=== PATIENT | male | born 1950 | race African-American/Black ===

== ENCOUNTER 2023-08-10 15:31 | Inpatient (IN) ==
[2023-08-10 18:49] LABS: BASOPHILS # (AUTO) 0.1 X10^3/uL (0.0-0.1); BASOPHILS % (AUTO) 0.5 % (0.2-1.0); EOSINOPHILS # (AUTO) 0.3 x10^3/uL (0.0-0.2); EOSINOPHILS % (AUTO) 1.3 % (0.9-2.9); HEMATOCRIT 36.9 % (42.0-54.0); HEMOGLOBIN 12.6 g/dL (13.5-18.0); LYMPHOCYTES # (AUTO) 1.2 X10^3/uL (1.3-2.9); MEAN CORPUSCULAR HEMOGLOBIN 30.5 pg (27.0-34.0); MEAN CORPUSCULAR HGB CONC 34.2 g/dL (33.0-35.0); MEAN PLATELET VOLUME 7.4 fL (7.4-11.0); MONOCYTES # (AUTO) 1.3 x10^3/uL (0.3-0.8); MONOCYTES % (AUTO) 6.5 % (0.0-13.0); NEUTROPHILS # (AUTO) 16.6 x10^3/uL (2.2-4.8); NEUTROPHILS % (AUTO) 85.7 % (42.0-75.0); PLATELET COUNT 295 X10^3/uL (150.0-450.0); RED BLOOD COUNT 4.15 X10^6/uL (4.7-6.0); RED CELL DISTRIBUTION WIDTH 13.2 % (11.6-16.5); WHITE BLOOD COUNT 19.3 X10^3/uL (3.6-10.0)
[2023-08-10 19:09] LABS: ALBUMIN 2.7 g/dL (3.4-5.0); CALCIUM 9.1 mg/dL (8.5-10.1); CARBON DIOXIDE 24.1 mmol/L (21-32); COR CA(FOR HYPOALB) 10.1 mg/dL (8.5-10.1); CREATININE 1.74 mg/dL (0.70-1.30); POTASSIUM 4.1 mmol/L (3.5-5.1); TOTAL PROTEIN 8.1 g/dL (6.4-8.2)
[2023-08-10 19:59] VITALS: BMI 25.6
[2023-08-10] MEDS: LR 1,000 ML IV 1,000 ML IV SCH (20:05)
[2023-08-10] MEDS: ZOSYN VIAL 3.375 GRAMS 3.375 G in NS 100 ML IV 100 ML IV SCH (20:05)
[2023-08-10] MEDS: NS 250 ML IV 25 ML IV PRN (20:05)
[2023-08-10] MEDS: DILAUDID INJ IVP PRN (20:14)
[2023-08-10] MEDS: COLCRYS TAB 0.6 MG PO SCH (20:54)
[2023-08-10] MEDS: NAPROSYN PO SCH (20:54)
[2023-08-10] MEDS: LOVENOX INJ 80 MG SYR SC SCH (20:55)
[2023-08-10] MEDS: ROBAXIN PO SCH (20:55)
--- NOTE | 2023-08-10 21:46 | EKG ---
Test Reason : Protocol Blood Pressure : */* mmHG Vent. Rate : 89 BPM Atrial Rate : 89 BPM P-R Int : 178 ms QRS Dur : 86 ms QT Int : 352 ms P-R-T Axes : 49 -15 59 degrees QTc Int : 428 ms Normal sinus rhythm Normal ECG No previous ECGs available Confirmed by Will Calhoun MD ([id number]) on 08/11/2023 7:45:15 AM Referred By: Confirmed By: Will Calhoun MD
[2023-08-11] MEDS: ZOSYN VIAL 3.375 GRAMS 3.375 G in NS 100 ML IV 100 ML IV SCH (05:06)
[2023-08-11] MEDS: ZESTORETIC 20/25 MG PO SCH (09:41)
[2023-08-11] MEDS: PROTONIX TAB 40 MG PO SCH (09:41)
[2023-08-11] MEDS ORDERED: MULTIHANCE INJ VIAL ONE (09:46)
[2023-08-11] MEDS: NYSTATIN POWDER TOP SCH (12:00)
--- NOTE | 2023-08-11 12:19 | RAD ---
EXAM:FOOT, RIGHT three-viewHISTORY:RT GREAT TOE WOUND ;COMPARISON:NoneFINDINGS:No acute fracture or dislocation. Hallux valgus deformity. No acute soft tissue abnormality. The talus and calcaneus appear intact.IMPRESSION:No acute fracture or dislocation.THIS IS AN ELECTRONICALLY VERIFIED FINAL REPORT08/11/2023 12:16 PM - Electronically signed by Ron Wang MD
--- NOTE | 2023-08-11 13:58 | NOTE.SOAP ---
Soap Note Note for Day of Date of Exam: 08/11/23 Subjective Data Subjective Data: Patient stable with no clinical indications of sepsis. Seen by Podiatry. MRI could not be performed as the patient could not tolerate the "cage " Plain films pending. WBC on admission > 19 k. Objective Data Temperature: 97.7 F Pulse Rate: 72 Respiratory Rate: 18 Blood Pressure: 108/59 O2 Sat by Pulse Oximetry: 98 Objective Data: Left foot swollen and unchanged consistent with ischemia . Xray of right foot with no acute changes . Assessment Assessment: Ischemia of left foot with wounds . Plan Plan: Continue IV antibiotics . Plan arterial intervention right leg on Monday.Repeat labs in AM.
--- NOTE | 2023-08-11 14:35 | DR.H&P ---
H&P History & Physical for Day of: H&P Date: 08/10/23 Chief Complaint Chief Complaint: painful wounds, blistering and swelling right foot. 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 Menon , yesterday with several month complaint of rest pain both legs and now with swelling, blisters and drainage left forefoot. Has had recent CTA in [place] showing b/l superficial femoral artery occlusion and reconstitution of the distal superficial femoral arteries with occlusion posterior tibial and anterior tibial arteries both legs with reconstitution both vessels, both legs distally. 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 Past Medical History Past Medical History: Gout and Hypertension Additional Medical History: tobacco abuse Past Surgical History Surgical History: Other (back surgery) Family History Family Medical History: Diabetes Mellitus Social History Does patient currently use any type of tobacco product: Yes Have you used tobacco products in the last 12 months: Yes Type of Tobacco Use: Cigarettes How many years tobacco product used: 12 Does any household member use tobacco: No Alcohol Use: None Drug Use: None Medications Home Medications: lisinopril/ HCTZ 20/25 mg dailly, diclofenac 75 mg po BID methocarbamol 1500 mg TID colcicine 0.6 mg BID Labs 08/10/23 18:35 08/10/23 18:35 Labs: 08/11/23 01:50 Foot - Right Wound Gram Stain - Final Laboratory WBC 19.3 X10^3/uL (3.6-10.0) H 08/10/23 18:35 RBC 4.15 X10^6/uL (4.7-6.0) L 08/10/23 18:35 Hgb 12.6 g/dL (13.5-18.0) L 08/10/23 18:35 Hct 36.9 % (42.0-54.0) L 08/10/23 18:35 MCV 89.0 fL (80.0-100.0) 08/10/23 18:35 MCH 30.5 pg (27.0-34.0) 08/10/23 18:35 MCHC 34.2 g/dL (33.0-35.0) 08/10/23 18:35 RDW 13.2 % (11.6-16.5) 08/10/23 18:35 Plt Count 295 X10^3/uL (150.0-450.0) 08/10/23 18:35 MPV 7.4 fL (7.4-11.0) 08/10/23 18:35 Neut % (Auto) 85.7 % (42.0-75.0) H 08/10/23 18:35 Lymph % (Auto) 6.0 % (21.0-51.0) L 08/10/23 18:35 [place] % (Auto) 6.5 % (0.0-13.0) 08/10/23 18:35 Eos % (Auto) 1.3 % (0.9-2.9) 08/10/23 18:35 Baso % (Auto) 0.5 % (0.2-1.0) 08/10/23 18:35 Neut # (Auto) 16.6 x10^3/uL (2.2-4.8) H 08/10/23 18:35 Lymph # (Auto) 1.2 X10^3/uL (1.3-2.9) L 08/10/23 18:35 [place] # (Auto) 1.3 x10^3/uL (0.3-0.8) H 08/10/23 18:35 Eos # (Auto) 0.3 x10^3/uL (0.0-0.2) H 08/10/23 18:35 Baso # (Auto) 0.1 X10^3/uL (0.0-0.1) 08/10/23 18:35 Absolute Nucleated RBC 0.0 /100WBC 08/10/23 18:35 Sodium 135 mmol/L (136-145) L 08/10/23 18:35 Corrected Sodium 136 mmol/L (136-145) 08/10/23 18:35 Potassium 4.1 mmol/L (3.5-5.1) 08/10/23 18:35 Chloride 100 mmol/L (98-107) 08/10/23 18:35 Carbon Dioxide 24.1 mmol/L (21-32) 08/10/23 18:35 BUN 50 mg/dL (7-18) H 08/10/23 18:35 Creatinine 1.74 mg/dL (0.70-1.30) H 08/10/23 18:35 Est GFR (MDRD) Af Amer 50 (>60) L 08/10/23 18:35 Est GFR (MDRD) Non-Af 41 (>60) L 08/10/23 18:35 Glucose 124 mg/dL (65-99) H 08/10/23 18:35 Calcium 9.1 mg/dL (8.5-10.1) 08/10/23 18:35 Corrected Calcium 10.1 mg/dL (8.5-10.1) 08/10/23 18:35 Total Bilirubin 0.40 mg/dL (0.2-1.0) 08/10/23 18:35 AST 49 Units/L (15-37) H 08/10/23 18:35 ALT 57 Units/L (12-78) 08/10/23 18:35 Alkaline Phosphatase 146 Units/L (46-116) H 08/10/23 18:35 Total Protein 8.1 g/dL (6.4-8.2) 08/10/23 18:35 Albumin 2.7 g/dL (3.4-5.0) L 08/10/23 18:35 Globulin 5.4 g/dL (2.5-4.5) H 08/10/23 18:35 Albumin/Globulin Ratio 0.5 Ratio (1.1-2.1) L 08/10/23 18:35 Review of Systems Constitutional: See HPI Eyes: No Symptoms Reported ENT: No Symptoms Reported Respiratory: No Symptoms Reported Cardiovascular: No Symptoms Reported Gastrointestinal: No Symptoms Reported Genitourinary: No Symptoms Reported Musculoskeletal: See HPI Skin: See HPI Neurological: No Symptoms Reported Physical Exam Vital Signs: Vital Signs Temperature 97.7 F Temperature 97.7 F Temperature 98.1 F Pulse Rate [Left Brachial] 72 Pulse Rate [Left Brachial] 83 Pulse Rate 72 Respiratory Rate 18 Respiratory Rate 18 Respiratory Rate 18 Blood Pressure [Left Arm] 108/59 Blood Pressure [Left Arm] 129/63 Blood Pressure 108/59 O2 Sat by Pulse Oximetry 98 O2 Sat by Pulse Oximetry 98 O2 Sat by Pulse Oximetry 98 Oriented: Normal, Time, Person and Place Eyes: Normal Ear: Normal Nose: Normal Throat: Normal Respiratory: Clear Throughout Cardiovascular: Normal : Normal Palpation: Normal Tenderness: Normal Skin: Other (Clinical evidence of ischemic toes right foot with blistering over the dorsum of the right foot over the fourth and fifth metatarsals. ) Musculoskeletal: Normal Psychiatric: Normal Mood Description: Depressed Affect: Quiet Speech Pattern: Clear Assessment/Plan (1) Atherosclerosis of nikolai arteries of extremities with rest pain, right leg: Status: Acute Plan: Therapuetic SQ Lovenox, plan arterial intervention right foot next Monday. (2) Cellulitis of right foot: Status: Acute Plan: IV antibiotics, will consult Dr. Bhandari (3) Atherosclerosis of nikolai arteries of extremities with rest pain, left leg: Status: Acute Plan: left leg will need arterial intervention in the near future after we resolve the issues withn the right leg. (4) Essential (primary) hypertension: Status: Acute Plan: home medications (5) Tobacco abuse: Status: Acute Plan: Nicotine patch (6) Gout: Status: Acute Plan: home medications
[2023-08-11] MEDS: BETADINE SOLN TOP ONE (18:21)
--- NOTE | 2023-08-11 19:55 | NOTE.SOAP ---
Soap Note Note for Day of Date of Exam: 08/11/23 Subjective Data Subjective Data: 72 year old male consulted for ischemic changes to the right foot. Malodor noted. Patient was resting comfortably in bed but states that it is painful Objective Data Objective Data: Dry gangrenous changes to the medial and lateral aspect of the right foot. No dermatological changes noted to the left. No purulence or crepitus but it is malodorous. Non palpable pulses. Neuro status unchanged Assessment Assessment: 72 year old male with critical limb ischemia and dry gangrene to the RLE Plan Plan: Patient was seen bedside this am with Dr. Bhandari. Diagnosis and treatment were discussed in full detail. XR of right foot reviewed; MRI was ordered but unable to do because of claustrophobia. Pending vascular intervention; recs aprpeciated. On IV antibiotics. Betadine paint to right foot to keep dry. Plan to monitor and see response to vascular intervention and possibly take to the OR early next week
[2023-08-12 05:37] LABS: BLOOD UREA NITROGEN 31 mg/dL (7-18); CALCIUM 9.1 mg/dL (8.5-10.1); CARBON DIOXIDE 24.8 mmol/L (21-32); CHLORIDE 105 mmol/L (98-107); CREATININE 1.48 mg/dL (0.70-1.30); GLUCOSE 81 mg/dL (65-99); SODIUM 141 mmol/L (136-145); eGFR NON BLACK RACES 50 (>60)
[2023-08-12 05:41] LABS: BASOPHILS # (AUTO) 0.1 X10^3/uL (0.0-0.1); BASOPHILS % (AUTO) 0.9 % (0.2-1.0); EOSINOPHILS # (AUTO) 0.4 x10^3/uL (0.0-0.2); EOSINOPHILS % (AUTO) 3.1 % (0.9-2.9); HEMATOCRIT 32.6 % (42.0-54.0); LYMPHOCYTES % (AUTO) 13.8 % (21.0-51.0); MEAN CORPUSCULAR HEMOGLOBIN 30.1 pg (27.0-34.0); MEAN CORPUSCULAR HGB CONC 33.6 g/dL (33.0-35.0); MEAN CORPUSCULAR VOLUME 89.4 fL (80.0-100.0); MEAN PLATELET VOLUME 7.6 fL (7.4-11.0); MONOCYTES # (AUTO) 1.3 x10^3/uL (0.3-0.8); MONOCYTES % (AUTO) 9.2 % (0.0-13.0); NEUTROPHILS # (AUTO) 10.6 x10^3/uL (2.2-4.8); PLATELET COUNT 282 X10^3/uL (150.0-450.0); RED BLOOD COUNT 3.65 X10^6/uL (4.7-6.0); RED CELL DISTRIBUTION WIDTH 13.4 % (11.6-16.5); WHITE BLOOD COUNT 14.4 X10^3/uL (3.6-10.0)
--- NOTE | 2023-08-12 06:08 | RAD ---
EXAM: CHEST, 1 VIEW HISTORY: F/U PNEUMONIA ; HTN, COPD COMPARISON: None available. FINDINGS: The trachea is midline. The cardiac silhouette is unremarkable . The lungs are clear without focal infiltrate or effusion. The bony thorax is unremarkable. IMPRESSION: No acute cardiopulmonary disease. THIS IS AN ELECTRONICALLY VERIFIED FINAL REPORT 08/12/2023 6:04 AM - Electronically signed by Waylon Young MD
--- NOTE | 2023-08-12 06:36 | NOTE.SOAP ---
Soap Note Note for Day of Date of Exam: 08/12/23 Subjective Data Subjective Data: Patient seen this am; expressing some pain in the right foot. Denies any constitutional symptoms at the moment. Objective Data Objective Data: No clinical changes; Dry gangrenous changes to the medial and lateral aspect of the right foot. No dermatological changes noted to the left. No purulence or crepitus but it is malodorous. Non palpable pulses. Neuro status unchanged Assessment Assessment: 72 year old male with critical limb ischemia, leukocytosis and dry gangrene to the RLE Plan Plan: Patient was seen bedside this am. Diagnosis and treatment were discussed in full detail. XR of right foot reviewed no soft tissue emphesema noted or signs of osteomyelitis. Foot is dry and stable right now; continue betadine paint BID. Pending vascular intervention; recs aprpeciated. On IV antibiotics. Plan to monitor and see response to vascular intervention and possibly take to the OR early next week
--- NOTE | 2023-08-12 08:08 | CT ---
EXAM:CT right lower extremity without contrastHISTORY:Evaluate for right foot infection. History of right 1st toe wound.COMPARISON:Right foot series from 08/11/2023.TECHNIQUE:Noncontrast axial, coronal and sagittal CT imaging was performed through the right ankle and foot. Dose reduction techniques including Automated Exposure Control (AEC) and adjustment of mA and kV were utilized.FINDINGS:Bones: No acute fracture or dislocation. No suspicious cortical destruction. Mild osteoarthritis at the 1st MTP joint and at the interphalangeal joint of the 1st toe.Soft tissues: Subcentimeter wound medially along the 1st toe at the level of the 1st MTP joint with associated mild edema. No soft tissue gas or fluid collection.IMPRESSION:Subcentimeter right 1st toe wound with associated mild edema without CT evidence of osteomyelitis.THIS IS AN ELECTRONICALLY VERIFIED FINAL REPORT08/12/2023 8:05 AM - Electronically signed by Henry Phan MD
[2023-08-12] MEDS: NICOTINE PATCH TD SCH (09:11)
[2023-08-13 09:18] LABS: BASOPHILS # (AUTO) 0.1 X10^3/uL (0.0-0.1); BASOPHILS % (AUTO) 0.9 % (0.2-1.0); EOSINOPHILS # (AUTO) 0.3 x10^3/uL (0.0-0.2); EOSINOPHILS % (AUTO) 2.4 % (0.9-2.9); HEMATOCRIT 33.2 % (42.0-54.0); HEMOGLOBIN 11.1 g/dL (13.5-18.0); LYMPHOCYTES # (AUTO) 2.2 X10^3/uL (1.3-2.9); LYMPHOCYTES % (AUTO) 15.1 % (21.0-51.0); MEAN CORPUSCULAR HGB CONC 33.5 g/dL (33.0-35.0); MEAN CORPUSCULAR VOLUME 89.5 fL (80.0-100.0); MEAN PLATELET VOLUME 7.2 fL (7.4-11.0); MONOCYTES # (AUTO) 1.2 x10^3/uL (0.3-0.8); MONOCYTES % (AUTO) 8.6 % (0.0-13.0); NEUTROPHILS # (AUTO) 10.4 x10^3/uL (2.2-4.8); PLATELET COUNT 303 X10^3/uL (150.0-450.0); RED BLOOD COUNT 3.71 X10^6/uL (4.7-6.0); RED CELL DISTRIBUTION WIDTH 13.2 % (11.6-16.5); WHITE BLOOD COUNT 14.2 X10^3/uL (3.6-10.0)
[2023-08-13 09:28] LABS: ALANINE AMINOTRANSFERASE 49 Units/L (12-78); ALBUMIN 2.3 g/dL (3.4-5.0); ALKALINE PHOSPHATASE 135 Units/L (46-116); ASPARTATE AMINO TRANSFERASE 34 Units/L (15-37); BLOOD UREA NITROGEN 21 mg/dL (7-18); CALCIUM 8.8 mg/dL (8.5-10.1); CARBON DIOXIDE 27.2 mmol/L (21-32); CHLORIDE 106 mmol/L (98-107); COR CA(FOR HYPOALB) 10.2 mg/dL (8.5-10.1); COR NA(FOR HYPERGLY) 142 mmol/L (136-145); CREATININE 1.37 mg/dL (0.70-1.30); GLUCOSE 116 mg/dL (65-99); SODIUM 142 mmol/L (136-145); TOTAL PROTEIN 7.1 g/dL (6.4-8.2); eGFR NON BLACK RACES 54 (>60)
--- NOTE | 2023-08-13 20:50 | NOTE.SOAP ---
Soap Note Note for Day of Date of Exam: 08/13/23 Subjective Data Subjective Data: HD # 3 after admission for ischemic right foot with infection. CTA shows complete occlusion of SFA . Objective Data Temperature: 98.7 F Pulse Rate: 69 Respiratory Rate: 18 Blood Pressure: 151/83 O2 Sat by Pulse Oximetry: 97 Objective Data: Betadine drying the wounds of the right foot, less drainage, ischemia stable Assessment Assessment: As above Plan Plan: Continue IV antibiotcs and will examine wound in AM . For arterial internvention on 08/15/2023.
--- NOTE | 2023-08-14 07:11 | NOTE.SOAP ---
Soap Note Note for Day of Date of Exam: 08/14/23 Subjective Data Subjective Data: Patient seen this am; expressing some pain in the right foot. Denies any constitutional symptoms at the moment. Objective Data Objective Data: No clinical changes; Dry gangrenous changes to the medial and lateral aspect of the right foot. No dermatological changes noted to the left. No purulence or crepitus but it is malodorous. Non palpable pulses. Neuro status unchanged Assessment Assessment: 72 year old male with critical limb ischemia, leukocytosis and dry gangrene to the RLE Plan Plan: Patient was seen bedside this am. Diagnosis and treatment were discussed in full detail. XR and CT of right foot reviewed no soft tissue emphesema noted or signs of osteomyelitis. Foot is dry and stable right now; continue betadine paint BID. Pending vascular intervention; recs aprpeciated. On IV antibiotics. Plan to monitor and see response to vascular intervention tomorrow
--- NOTE | 2023-08-14 13:18 | NOTE.SOAP ---
Soap Note Note for Day of Date of Exam: 08/14/23 Subjective Data Subjective Data: Patient admitted for critical ischemia right leg with cellulitis right foot. Doing well. 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 Objective Data Temperature: 97.9 F Pulse Rate: 74 Respiratory Rate: 18 Blood Pressure: 138/71 O2 Sat by Pulse Oximetry: 99 Objective Data: Right foot drying up with betadine treatment. Infection appears to be under control. Assessment Assessment: Ischemia/ cellulitis right foot Plan Plan: For right foot revascualarization tomorrow.
[2023-08-15] MEDS: HIBICLENS WASH EXT ONE (05:34)
[2023-08-15] MEDS: FENTANYL VIAL INJ 100 mcg ONE ×2 (10:13→11:47)
[2023-08-15] MEDS: LR 1,000 ML IV 1,000 ML IV ONE (10:24)
[2023-08-15] MEDS: VERSED ONE (11:04)
[2023-08-15] MEDS ORDERED: KETAMINE HCL ONE (11:04)
[2023-08-15] MEDS ORDERED: ULTANE GAS IN ONE (11:04)
[2023-08-15] MEDS: DIPRIVAN VIAL 20 ML ONE ×2 (11:04→11:32)
[2023-08-15] MEDS ORDERED: XYLOCAINE 2 % (PLAIN) ONE (11:04)
[2023-08-15] MEDS: VISIPAQUE 100 ML ONE (11:23)
[2023-08-15] MEDS: MARCAINE 0.5% ONE (11:23)
[2023-08-15] MEDS: VISIPAQUE 50 ML ONE (11:23)
[2023-08-15] MEDS: HEPARIN SODIUM IN D5W 75,000 UNITS/1,500 ML BAG ONE (11:23)
[2023-08-15] MEDS: HEPARIN SODIUM INJ 5000 UNITS ONE ×2 (11:24→12:27)
[2023-08-15] MEDS: NS 1,000 ML IV 1,000 ML ONE (11:53)
[2023-08-15] MEDS ORDERED: REGLAN INJ 10 MG VIAL IVP PRN (13:39)
[2023-08-15] MEDS ORDERED: BENADRYL INJ 50 MG VIAL IVP PRN (13:39)
[2023-08-15] MEDS ORDERED: DILAUDID INJ IVP PRN (13:39)
[2023-08-15] MEDS ORDERED: BARHEMSYS INJ IVP PRN (13:39)
[2023-08-15] MEDS ORDERED: ZOFRAN INJ 4 MG VIAL IVP PRN (13:39)
--- NOTE | 2023-08-15 14:20 | OR.IMMED ---
IMMEDIATE POST-OP NOTE Immediate Post-Op Note Date of surgery/procedure: 08/15/23 Pre-Op Diagnosis: Critical ischema right leg with tissue loss right foot Post-Op Diagnosis: same Procedure: aortogram, arteriogram right leg, atherectomy and drug coated b alloon angioplasty of the right tibial peroneal trunk, right popliteal artery occlusion and severely diseased right superficial femoral artery , subsequent stenting of the right popiteal artery Surgeon/Rotating Equipment Engineer: Magdy Findings: see operative summary Estimated Blood Loss: 100 cc Complications: none Post Hospital Plans and Medications: patient returned to the floor. will begin diet and PO Xarelto and aspirin
[2023-08-15] MEDS: LEVAQUIN TAB 750 MG PO SCH (14:52)
[2023-08-15] MEDS: XARELTO PO SCH (20:11)
[2023-08-16] MEDS: ASPIRIN EC 81 MG PO SCH (09:28)
--- NOTE | 2023-08-16 17:07 | NOTE.SOAP ---
Soap Note Note for Day of Date of Exam: 08/16/23 Subjective Data Subjective Data: S/P right leg arteriogram with atherectomy and angioplasty right popliteal artery and tibial peroneal trunk , atherectomy and stenting left proximal popliteal artery with atherectomy and drug coated balloon angioplasty right supeficial femoral artery. I am worried about the runoff of the right leg as he essentially only has one vessel runoff of the right foot , i.e. right peroneal which is large but i am concerned about the flow to the left foot. Charisma denies pain right foot now . Objective Data Temperature: 99.1 F Pulse Rate: 89 Respiratory Rate: 17 Blood Pressure: 113/69 O2 Sat by Pulse Oximetry: 96 Objective Data: Right foot warm with doppler signal right posterior tibial artery with dry eschar of the dorsal right foot with swelling. MRI not able to be obtained . C T of right foot shows no abcess of structural problem of the right foot. Assessment Assessment: Critical ischemia right foot with improved after arterial intervention. Plan Plan: Will obsefve wounds of right foot and eschar should peel off and then heal. Will refer back to Dr. Menon. Charisma with known severe ischemia left leg as well. Transportation is an issue for him. Will consider arterial intervention of the left leg prior to his discharge.
[2023-08-17] MEDS: HIBICLENS WASH EXT ONE (05:19)
[2023-08-17 05:35] LABS: BLOOD UREA NITROGEN 19 mg/dL (7-18); CALCIUM 9.3 mg/dL (8.5-10.1); CARBON DIOXIDE 26.1 mmol/L (21-32); CHLORIDE 102 mmol/L (98-107); CREATININE 1.35 mg/dL (0.70-1.30); GLUCOSE 99 mg/dL (65-99); POTASSIUM 3.6 mmol/L (3.5-5.1); SODIUM 140 mmol/L (136-145); eGFR NON BLACK RACES 55 (>60)
[2023-08-17] MEDS ORDERED: CONSULT PHARMACY - POTASSIUM & MAGNESIUM XX SCH (06:00)
[2023-08-17] MEDS: NS 1,000 ML IV 1,000 ML ONE (07:40)
[2023-08-17] MEDS: ANCEF VIAL 1 GRAM ONE (08:13)
[2023-08-17] MEDS: NS 100 ML IV 100 ML ONE (08:13)
[2023-08-17] MEDS: DIPRIVAN VIAL 20 ML ONE (08:14)
[2023-08-17] MEDS: FENTANYL VIAL INJ 100 mcg ONE ×2 (08:14→08:29)
[2023-08-17] MEDS: VERSED ONE (08:14)
[2023-08-17] MEDS ORDERED: SUPRANE ONE (08:14)
[2023-08-17] MEDS: MARCAINE 0.5% ONE (08:43)
[2023-08-17] MEDS: HEPARIN SODIUM IN D5W 75,000 UNITS/1,500 ML BAG ONE (08:43)
[2023-08-17] MEDS: EPHEDRINE SULFATE INJ ONE (08:44)
[2023-08-17] MEDS: HEPARIN SODIUM INJ 5000 UNITS ONE (08:44)
[2023-08-17] MEDS ORDERED: K-RIDER 10 MEQ/100 ML WATER 10 MEQ/100 ML BAG IV SCH (09:00)
[2023-08-17] MEDS: K-DUR TAB 20 MEQ PO SCH (09:20)
[2023-08-17 10:00] VITALS: RESP 18
[2023-08-17] MEDS ORDERED: ZOFRAN INJ 4 MG VIAL IVP PRN (10:01)
[2023-08-17] MEDS ORDERED: DILAUDID INJ IVP PRN (10:01)
[2023-08-17] MEDS ORDERED: BENADRYL INJ 50 MG VIAL IVP PRN (10:01)
[2023-08-17] MEDS ORDERED: BARHEMSYS INJ IVP PRN (10:01)
--- NOTE | 2023-08-17 10:07 | OR.IMMED ---
IMMEDIATE POST-OP NOTE Immediate Post-Op Note Date of surgery/procedure: 08/17/23 Pre-Op Diagnosis: critical ischemia left leg Post-Op Diagnosis: same Procedure: Aortogram, arteriogram left leg, atherectomy and Drug coated balloon angioplasty of the left distal popliteal artery ,atherectomy and drug coated stenting left proximal popliteal artery, left distal and mid superficial femoral artery and atherectomy and drug coated balloon angioplasty proximal left superficial femoral artery. Surgeon/Geothermal System Installer: Magdy Findings: completely occluded left superficial femoral artery from takeoff to adductor canal, severely diseased left popliteal artery and ond vessel runoff via a large left peroneal artery. Estimated Blood Loss: 50 cc Complications: none Discharge Progress Notes: return to floor after PACU, d/c home later today.
[2023-08-17 10:18] VITALS: O2SAT 97
[2023-08-17] MEDS: K-DUR TAB 20 MEQ PO NR (12:21)
[2023-08-17] MEDS ORDERED: NS IRRIGATION* 1,000 ML ONE (12:25)
[2023-08-17 13:38] VITALS: TEMP 98.2
[2023-08-17 13:39] VITALS: BP 117/60; PULSE 84
--- NOTE | 2023-08-17 14:01 | W.DIS.FURT ---
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 Patients transferred here for definitive treatment. He was started on IV antibiotics, IV Zosyn . He was seen in consultation by Podiatry and on antibiotics and dressing changes with Betadine his wounds improved. CT angiogram done previously in [place] showed bilateral superficial femoral artery long segment occlusions with reconstitution of the popliteal arteries and 1 vessel r unoff bilaterally via the peroneal arteries. On 08/14 here underwent arterial intervention to open up the right superficial artery and has had continued Improvement of the imnfection of the right foot. White blood cell counts started at greater than 19,000 and now is 14,000 prior to discharge. His cultures grew out Klebsiella which was sensitive to PO Levaquin he has since been changed to that. 500 milligrams daily. 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 He will l be discharged today on his usual home medications plus aspirin 81 milligram daily by mouth, Xarelto to 2.5 milligrams BID. He will also be on Levaquin 500 milligrams daily. He will follow up with Dr Chavez Curran in 1 week. He will F/U with Dr. Menon to address the wounds. Hopefully they will heal without intervention. There is a small possibility he may required to breathing and skin grafting in the future. Both legs are viable. Vital Signs: Vital Signs (72 hours) 08/16/23 17:07 08/14/23 16:00 08/14/23 19:32 Temperature 99.1 F 97.7 F 98.5 F Pulse Rate 89 Pulse Rate [Left Brachial] 69 72 Respiratory Rate 17 18 19 Blood Pressure 113/69 Blood Pressure [Left Arm] 139/78 Blood Pressure [Right Arm] 156/80 O2 Sat by Pulse Oximetry 96 99 98 Oxygen Delivery Method Room Air Room Air 08/14/23 19:00 08/14/23 21:32 08/14/23 22:02 Temperature Pulse Rate Pulse Rate [Left Brachial] Respiratory Rate 22 19 Blood Pressure Blood Pressure [Left Arm] Blood Pressure [Right Arm] O2 Sat by Pulse Oximetry Oxygen Delivery Method Room Air 08/15/23 00:00 08/15/23 04:00 08/15/23 08:15 Temperature 98.3 F 98.4 F Pulse Rate Pulse Rate [Left Brachial] 72 65 Respiratory Rate 20 21 Blood Pressure Blood Pressure [Left Arm] 112/61 123/68 Blood Pressure [Right Arm] O2 Sat by Pulse Oximetry 96 97 Oxygen Delivery Method Room Air Room Air Room Air 08/15/23 08:00 08/15/23 10:33 08/15/23 13:13 Temperature 97.6 F 97.0 F L 97.4 F L Pulse Rate 78 74 Pulse Rate [Left Brachial] 66 Respiratory Rate 18 22 16 Blood Pressure 158/76 143/75 Blood Pressure [Left Arm] 119/73 Blood Pressure [Right Arm] O2 Sat by Pulse Oximetry 96 96 96 Oxygen Delivery Method Room Air Nasal Cannula Aerosol Face Tent 08/15/23 13:18 08/15/23 13:38 08/15/23 13:43 Temperature Pulse Rate 83 65 67 Pulse Rate [Left Brachial] Respiratory Rate 18 18 18 Blood Pressure 142/79 149/73 134/63 Blood Pressure [Left Arm] Blood Pressure [Right Arm] O2 Sat by Pulse Oximetry 98 94 L 95 Oxygen Delivery Method Aerosol Face Tent Room Air Room Air 08/15/23 13:23 08/15/23 13:28 08/15/23 13:33 Temperature Pulse Rate 69 63 65 Pulse Rate [Left Brachial] Respiratory Rate 18 18 18 Blood Pressure 137/74 134/64 142/64 Blood Pressure [Left Arm] Blood Pressure [Right Arm] O2 Sat by Pulse Oximetry 100 96 96 Oxygen Delivery Method Aerosol Face Tent Nasal Cannula Nasal Cannula 08/15/23 13:48 08/15/23 13:55 08/15/23 14:10 Temperature 98.2 F 98.3 F Pulse Rate 67 Pulse Rate [Left Brachial] 63 66 Respiratory Rate 18 18 18 Blood Pressure 134/63 Blood Pressure [Left Arm] Blood Pressure [Right Arm] 140/71 155/84 O2 Sat by Pulse Oximetry 95 92 L 95 Oxygen Delivery Method Room Air 08/15/23 14:25 08/15/23 14:40 08/15/23 14:55 Temperature 98.1 F 98 F 98 F Pulse Rate Pulse Rate [Left Brachial] 63 61 62 Respiratory Rate 20 20 18 Blood Pressure Blood Pressure [Left Arm] Blood Pressure [Right Arm] 137/68 152/82 117/63 O2 Sat by Pulse Oximetry 95 97 98 Oxygen Delivery Method 08/15/23 15:55 08/15/23 16:55 08/15/23 17:55 Temperature 97.9 F 97.7 F 97.6 F Pulse Rate Pulse Rate [Left Brachial] 73 68 88 Respiratory Rate 18 18 18 Blood Pressure Blood Pressure [Left Arm] Blood Pressure [Right Arm] 128/71 125/61 136/87 O2 Sat by Pulse Oximetry 99 94 L 96 Oxygen Delivery Method 08/15/23 18:55 08/15/23 19:00 08/15/23 19:46 Temperature 97.7 F 97.6 F Pulse Rate Pulse Rate [Left Brachial] 86 94 H Respiratory Rate 20 20 Blood Pressure Blood Pressure [Left Arm] 128/74 139/74 Blood Pressure [Right Arm] O2 Sat by Pulse Oximetry 96 98 Oxygen Delivery Method Room Air Room Air Room Air 08/15/23 22:17 08/15/23 22:47 08/16/23 00:00 Temperature 98.2 F Pulse Rate Pulse Rate [Left Brachial] 83 Respiratory Rate 20 20 20 Blood Pressure Blood Pressure [Left Arm] 117/67 Blood Pressure [Right Arm] O2 Sat by Pulse Oximetry 95 Oxygen Delivery Method Room Air 08/16/23 04:00 08/16/23 08:00 08/16/23 07:00 Temperature 98.1 F 99.1 F Pulse Rate Pulse Rate [Left Brachial] 80 89 Respiratory Rate 20 17 Blood Pressure Blood Pressure [Left Arm] 130/72 113/69 Blood Pressure [Right Arm] O2 Sat by Pulse Oximetry 98 98 Oxygen Delivery Method Room Air Room Air Room Air 08/16/23 12:00 08/16/23 16:00 08/16/23 15:09 Temperature 97.5 F L 98.2 F Pulse Rate Pulse Rate [Left Brachial] 97 H 82 Respiratory Rate 22 20 22 Blood Pressure Blood Pressure [Left Arm] 129/72 107/61 Blood Pressure [Right Arm] O2 Sat by Pulse Oximetry 96 97 Oxygen Delivery Method Room Air Room Air 08/16/23 15:39 08/16/23 19:00 08/16/23 20:00 Temperature 98.9 F Pulse Rate Pulse Rate [Left Brachial] 81 Respiratory Rate 22 20 Blood Pressure Blood Pressure [Left Arm] Blood Pressure [Right Arm] 163/74 O2 Sat by Pulse Oximetry 97 Oxygen Delivery Method Room Air Room Air 08/16/23 23:27 08/17/23 04:00 08/17/23 09:48 Temperature 98.9 F 99.1 F Pulse Rate 81 Pulse Rate [Left Brachial] 79 83 Respiratory Rate 18 18 16 Blood Pressure 107/57 Blood Pressure [Left Arm] 129/69 141/86 Blood Pressure [Right Arm] O2 Sat by Pulse Oximetry 98 98 98 Oxygen Delivery Method Room Air Room Air Aerosol Face Tent 08/17/23 09:58 08/17/23 10:03 08/17/23 10:08 Temperature Pulse Rate 78 75 78 Pulse Rate [Left Brachial] Respiratory Rate 18 18 18 Blood Pressure 112/57 104/56 116/63 Blood Pressure [Left Arm] Blood Pressure [Right Arm] O2 Sat by Pulse Oximetry 96 98 97 Oxygen Delivery Method Room Air Nasal Cannula Nasal Cannula 08/17/23 10:13 08/17/23 10:18 08/17/23 09:53 Temperature Pulse Rate 73 70 78 Pulse Rate [Left Brachial] Respiratory Rate 18 18 16 Blood Pressure 117/67 127/70 108/59 Blood Pressure [Left Arm] Blood Pressure [Right Arm] O2 Sat by Pulse Oximetry 98 97 100 Oxygen Delivery Method Nasal Cannula Nasal Cannula Aerosol Face Tent 08/17/23 07:00 08/17/23 10:30 08/17/23 10:45 Temperature 97.5 F L 97.5 F L Pulse Rate Pulse Rate [Left Brachial] 77 78 Respiratory Rate 18 18 Blood Pressure Blood Pressure [Left Arm] 130/69 156/77 Blood Pressure [Right Arm] O2 Sat by Pulse Oximetry 98 96 Oxygen Delivery Method Room Air Room Air Room Air 08/17/23 11:00 08/17/23 11:15 08/17/23 11:30 Temperature 97.0 F L 98.2 F Pulse Rate Pulse Rate [Left Brachial] 80 82 70 Respiratory Rate 18 19 18 Blood Pressure Blood Pressure [Left Arm] 140/68 131/68 123/77 Blood Pressure [Right Arm] O2 Sat by Pulse Oximetry 99 98 95 Oxygen Delivery Method Room Air Room Air Room Air 08/17/23 12:30 08/17/23 13:30 Temperature 98.2 F Pulse Rate Pulse Rate [Left Brachial] 84 83 Respiratory Rate 18 18 Blood Pressure Blood Pressure [Left Arm] 117/60 116/66 Blood Pressure [Right Arm] O2 Sat by Pulse Oximetry 97 97 Oxygen Delivery Method Room Air Room Air Labs: Laboratory Last Values WBC 14.2 X10^3/uL (3.6-10.0) H 08/13/23 09:11 RBC 3.71 X10^6/uL (4.7-6.0) L 08/13/23 09:11 Hgb 11.1 g/dL (13.5-18.0) L 08/13/23 09:11 Hct 33.2 % (42.0-54.0) L 08/13/23 09:11 MCV 89.5 fL (80.0-100.0) 08/13/23 09:11 MCH 30.0 pg (27.0-34.0) 08/13/23 09:11 MCHC 33.5 g/dL (33.0-35.0) 08/13/23 09:11 RDW 13.2 % (11.6-16.5) 08/13/23 09:11 Plt Count 303 X10^3/uL (150.0-450.0) 08/13/23 09:11 MPV 7.2 fL (7.4-11.0) L 08/13/23 09:11 Neut % (Auto) 73.0 % (42.0-75.0) 08/13/23 09:11 Lymph % (Auto) 15.1 % (21.0-51.0) L 08/13/23 09:11 Delta % (Auto) 8.6 % (0.0-13.0) 08/13/23 09:11 Eos % (Auto) 2.4 % (0.9-2.9) 08/13/23 09:11 Baso % (Auto) 0.9 % (0.2-1.0) 08/13/23 09:11 Neut # (Auto) 10.4 x10^3/uL (2.2-4.8) H 08/13/23 09:11 Lymph # (Auto) 2.2 X10^3/uL (1.3-2.9) 08/13/23 09:11 Delta # (Auto) 1.2 x10^3/uL (0.3-0.8) H 08/13/23 09:11 Eos # (Auto) 0.3 x10^3/uL (0.0-0.2) H 08/13/23 09:11 Baso # (Auto) 0.1 X10^3/uL (0.0-0.1) 08/13/23 09:11 Absolute Nucleated RBC 0.0 /100WBC 08/13/23 09:11 Sodium 140 mmol/L (136-145) 08/17/23 05:05 Corrected Sodium TNP 08/17/23 05:05 Potassium 3.6 mmol/L (3.5-5.1) 08/17/23 05:05 Chloride 102 mmol/L (98-107) 08/17/23 05:05 Carbon Dioxide 26.1 mmol/L (21-32) 08/17/23 05:05 BUN 19 mg/dL (7-18) H 08/17/23 05:05 Creatinine 1.35 mg/dL (0.70-1.30) H 08/17/23 05:05 Est GFR (MDRD) Af Amer > 60 (>60) 08/17/23 05:05 Est GFR (MDRD) Non-Af 55 (>60) L 08/17/23 05:05 Glucose 99 mg/dL (65-99) 08/17/23 05:05 Calcium 9.3 mg/dL (8.5-10.1) 08/17/23 05:05 Corrected Calcium 10.2 mg/dL (8.5-10.1) H 08/13/23 09:11 Total Bilirubin 0.40 mg/dL (0.2-1.0) 08/13/23 09:11 AST 34 Units/L (15-37) 08/13/23 09:11 ALT 49 Units/L (12-78) 08/13/23 09:11 Alkaline Phosphatase 135 Units/L (46-116) H 08/13/23 09:11 Total Protein 7.1 g/dL (6.4-8.2) 08/13/23 09:11 Albumin 2.3 g/dL (3.4-5.0) L 08/13/23 09:11 Globulin 4.8 g/dL (2.5-4.5) H 08/13/23 09:11 Albumin/Globulin Ratio 0.5 Ratio (1.1-2.1) L 08/13/23 09:11 Reason For Visit: CRITICAL ISCHEMIA BILATERAL LEGS Discharge Date Discharge Date: 08/17/23 Discharge Diagnosis All Active Problems (Updated 08/11/23 @ 14:32 by Sarabjit Curran) Atherosclerosis of apache arteries of extremities with rest pain, right leg (Acute) Cellulitis of right foot (Acute) Atherosclerosis of apache arteries of extremities with rest pain, left leg (Acute) Tobacco abuse (Acute) Essential (primary) hypertension (Acute) Gout (Acute) Plan of Treatment: Continue with present treatment and follow up plan. Pt is to keep follow up appointment as instructed and take medications as ordered. Discharge Medications Discharge Medications: No Known Drug Allergies Allergy (Verified 08/10/23 19:30) CONTINUE taking the following medications diclofenac sodium 75 mg tablet,delayed release 75 mg PO BID 08/14/23 [History] furosemide 20 mg tablet 20 mg PO QDAY 08/14/23 [History] lisinopril 20 mg-hydrochlorothiazide 25 mg tablet 1 tab PO QDAY 08/14/23 [History] tadalafil 20 mg tablet 20 mg PO QDAY 08/14/23 [History] tramadol 50 mg tablet 50 mg PO Q4-6H PRN Pain 08/14/23 [History] aspirin 81 mg po daily Xarelto 2.5 mg po BID Levaquin 500 mg po daily x 7 days Discharge Disposition Assessment: See hospital course above Discharge Plan Discharge Plan Hospital Course: 72 year old male, heavy smoker who 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 Patients transferred here for definitive treatment. He was started on IV antibiotics, IV Zosyn . He was seen in consultation by Podiatry and on antibiotics and dressing changes with Betadine his wounds improved. CT angiogram done previously in [place] showed bilateral superficial femoral artery long segment occlusions with reconstitution of the popliteal arteries and 1 vessel runoff bilaterally via the peroneal arteries. On 08/14 here underwent arterial intervention to open up the right superficial artery and has had continued Improvement of the imnfection of the right foot. White blood cell counts started at greater than 19,000 and now is 14,000 prior to discharge. His cultures grew out Klebsiella which was sensitive to PO Levaquin he has since been changed to that. 500 milligrams daily. 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 He will l be discharged today on his usual home medications plus aspirin 81 milligram daily by mouth, Xarelto to 2.5 milligrams BID. He will also be on Levaquin 500 milligrams daily. He will follow up with Dr Chavez Curran in 1 week. He will F/U with Dr. Menon to address the wounds. Hopefully they will heal without intervention. There is a small possibility he may required to breathing and skin grafting in the future. Both legs are viable. Patient Disposition: HOME HEALTH SERVICE Condition: Stable Health Concerns: Post Hospitalization: new medications and changes needed to prevent readmission or further decline. Pt educated and given instructions on all concerns. Care Plan Goals: Problem: Pain/Alteration in Comfort Goal: Improve/ Resolve Pain; Achieve Pain Tolerance Instructions: Take pain medications as prescribed. Contact your primary care provider if your pain is unrelieved or worsens. Follow up with primary care provider as directed. Plan of Treatment: Continue with present treatment and follow up plan. Pt is to keep follow up appointment as instructed and take medications as ordered. Assessment: See hospital course above Prescription drug monitoring program results: PDMP reviewed and no concerns identified Prescriptions: New aspirin 81 mg tablet,chewable 81 mg PO QDAY Qty: 180 0RF oxycodone-acetaminophen [Percocet] 5-325 mg tablet 1 tab PO Q6H MDD 4 PRNQty: 30 0RF levofloxacin 500 mg tablet 500 mg PO QDAY Qty: 7 0RF Xarelto 2.5 mg tablet 2.5 mg PO BID Qty: 180 0RF Continued tramadol 50 mg Tablet 50 mg PO Q4-6H PRN (Reason: Pain) lisinopril-hydrochlorothiazide 20-25 mg Tablet 1 tab PO QDAY diclofenac sodium 75 mg Tablet,Delayed Release (Dr/Ec) 75 mg PO BID furosemide 20 mg Tablet 20 mg PO QDAY tadalafil 20 mg Tablet 20 mg PO QDAY Follow ups/Referrals Follow ups/Referrals: Sarabjit Curran [STAFF PHYSICIAN] - 08/28/23 10:00 am RUFINA MENON [REFERRING] - 08/31/23 9:30 am Instructions Instructions: Steps to Quit Smoking, [id number], Cellulitis, Adult, Smoking Tobacco Information, Adult, Endovascular Therapy for Peripheral Vascular Disease, Care After Stand Alone Forms: Excuse From Work or School, Post Hospital Follow Up Care
--- NOTE | 2023-08-21 13:04 | DR.OPNOTE ---
OP NOTE Pre-Op Diagnosis: critical ischemia right foot with tissue loss right foot. Post-Op Diagnosis: same Procedure Date Date Of Procedure: 08/15/23 Procedure: PROCEDURE: DIAGNOSTIC AORTOGRAM, DIAGNOSTIC ARTERIOGRAM RIGHT LEG ATHERECTOMY AND DRUG COATED BALLOON ANGIOPLASTY RIGHT TIBIAL PERONEAL TRUNK, ATHERECTOMY AND DRUG COATED BALLOON ANGIOPLASTY RIGHT POPLITEAL ARTERY AND RIGHT SUPERFICIAL FEMORAL ARTERY AND SUBSEQUEN STENTING OF THE RIGHT POPLITEAL ARTERY NARRATIVE : The patient was taken to the operative suite and placed in the supine position. The left groin and entire right leg were prepped and draped in sterile fashion. The patient was given intravenous sedation supervised by myself. Time out for the procedure obtained. Ultrasound used to identify the left femoral artery and the skin overlying it infiltrated with 0.5% Marcaine. U ltrasound then used to guide puncture of the left femoral artery and a 0.012 inch guide wire was placed. Incision made over the guide wire at the skin edge with a # 11 knife blade and a micro sheath placed over the guide wire into the left femoral artery The small guidewire exchanged for a 0.035 inch Advantage glide wire and the micro sheath exchanged for a 5 Fr vascular sheath. Patient given 5000 units of intravenous heparin. Omni catheter was placed over the guide wire into the aorta and diagnostic aortogram carried out with the power injector showing patent aorta and iliac arteries. Omni catheter was used to steer the guide wire down the right common iliac artery to the distal right external iliac artery . Omni catheter was exchanged for a [place] catheter and sequential arteriograms carried out of the right lower extremity showing severely diseased right superficial femorla artery , complete occlusion of the right popliteal artery and complete occlusion of the right tibial peroneal trunk. The 5 Fr sheath in the left groin in exchanged for a 7 Fr Catapult sheath which was parked in the distal right external iliac artery . [place] catheter and the guide wire were used to traverse the arteries of the right leg ultimately ending in the right peroneal artery . This was selective catheterization. The only runoff to the the right foot was the peroneal artery . 0.035 inch wire removed and exchanged for a 0.014 inch wire. Over this wire we placed the Jet Stream atherectomy device and performed atherectomy of the right superficial femoral artery, the right politeal artery and the right tibial peroneal trunk . At this point we performed balloon dilitation of the left tibial peroneal trunk using a Randall 4 mmx 100 mm drug coated balloon inflating it for three minutes. The right popliteal artery was balloon dilated with a 5 mm x 200 mm Randall balloon, the distal and mid right superficial femoral artery dilated with a Randall 6mmx 200 mmballoon and the proximal right superficial femoral artery with a Randall 7 mm x 200 mm balloon . Each Randall balloon inflated for three minutes . At the completion of this a follow up arteriogram showed excellent result except for the right popliteal artery . An Gerda 6mmx 120 mm drug coated stent was placed in the politeal artery and balloon dialted with a Oneil 6 mm balloon . Repeat arteriogram showed excellent results . All wires and devices removed. The 7 Fr sheath was pulled back into the aorta and a 0.035 inch wire placed. The destination sheath exchanged for an Angioseal device used to close the puncture of the left femoral artery. Dressing applied to the left groin. The patient taken to same day surgery in good condition. No Protamine given at the end of th case. Type of Anesthesia: Local (0.5% Marcaine ) Anesthesia Comment: plus MAC Findings: occlude right tibial peroneal trunk, occluded right popliteal artery , severely diseases right superficial femoral artery Type of Fluids Used:: Lactated Ringers Total Amount of Fluid Infused:: 800cc EBL: 100cc Hardware: 6mmx 120mm Gerda drug coated stent placed left popliteal artery Complications:: none Needle/Sponge Count:: correct Disposition/Condition: Pt. tolerated procedure without difficulty. Patietn taken to [facility] in stable condition.
--- NOTE | 2023-08-22 17:39 | DR.OPNOTE ---
OP NOTE Pre-Op Diagnosis: Critical ischemia left leg Post-Op Diagnosis: same Procedure Date Date Of Procedure: 08/17/23 Procedure: PROCEDURE: DIAGNOSTIC AORTOGRAM, DIAGNOSTIC ARTERIOGRAM LEFT LEG, ATHERECTOMY AND DRUG COATED BALLOON ANGIOPLASTY LEFT DISTAL POLITEAL ARTERY, ATHERECTOMY AND DRUG COATED STENTING STENTING LEFT POPLLITEAL ARTERY AND MID AND DISTAL LEFT SUPERFICIAL FEMORAL ARTERY, ATHERECTOMY AND DRUG COATED BALLOON ANGIOPLASTY LEFT PROXIMAL SUPERFICIAL FEMORAL ARTERY NARRATIVE : The patient was taken to the operative suite and placed in the supine position. The right groin and entire left leg were prepped and draped in sterile fashion. The patient was given intravenous sedation supervised by myself. Time out for the procedure obtained. Ultrasound used to identify the right femoral artery and the skin overlying it infiltrated with 0.5% Marcaine. Ultrasound then used to guide puncture of the right femoral artery and a 0.012 inch guide wire was placed. Incision made over the guide wire at the skin edge with a # 11 knife blade and a micro sheath placed over the guide wire into the right femoral artery The small guidewire exchanged for a 0.035 inch Advantage glide wire and the micro sheath exchanged for a 5 Fr vascular sheath. Patient given 5000 units of intravenous heparin. Omni catheter was placed over the guide wire into the aorta and diagnostic aortogram carried out with the power injector showing patent aorta and iliac arteries . Omni catheter was used to steer the guide wire down the left common iliac artery to the distal left external iliac artery . Omni catheter was exchanged for a [place] catheter and sequential arteriograms carried out of the left lower extremity showing completely excluded left superficial femoral artery beginning at its takeoff with reconstitution of the popliteal artery below the adductor canal. There was also significant disease of the distal left popliteal artery with 1 vessel runoff to the ankle via a large peroneal artery .The 5 Fr sheath in the right groin then exchanged for a 7 Fr Catapult sheath which was parked in the distal left external iliac artery . Malabar catheter and the guide wire were used to traverse the arteries of the left leg ultimately ending in the left peroneal artery . This was selective catheterization. 0.035 inch wire removed and exchanged for a 0.014 inch wire. Over this wire we placed the Jet Stream atherectomy device and performed atherectomy of the entire left superficial femoral artery and popliteal arteries . At this point we performed balloon dilatation of of the distal left poplteal artery with a Mackey 5 millimeter by 150 millimeter drug coated balloon inflating it for 3 minutes. We then placed 7 millimeter by 150 millimeter drug coated stents end to end with 3 millimeter overlap into the proximal left popliteal artery and the distal and mid portion of the left superficial from artery and then post dilated these stents with a 5 millimeter [employer] Mackey balloon .Finally the proximal left superfo icial femoral artery was balloon dilated with a [employer] 6 millimetre by 200 millimetre drug-coated balloon. The blood coated balloons were inflated for 3 minutes and then removed .At the completion of this a follow up arteriogram showed excellent results. All wires and devices removed. The 7 Fr sheath was pulled back into the aorta and a 0.035 inch wire placed. The destination sheath exchanged for an Angioseal device used to close the puncture of the right femoral artery. Dressing applied to the left groin. The patient taken to Same Day Surgery in good condition. Type of Anesthesia: Local (0.5% Marcaine) Anesthesia Comment: plus MAC Findings: completely excluded left superficial femoral artery from its takeoff to the adductor canal, severe disease left popliteazl artery, 1 vessel runoff via a large peroneal artery Type of Fluids Used:: Lactated Ringers Total Amount of Fluid Infused:: 750cc Urine output: 250 cc EBL: 50 cc Hardware: Gerda 7mmx 150 mm stents x 2 Complications:: none Needle/Sponge Count:: correct Disposition/Condition: Pt. tolerated procedure without difficulty. Taken to [facility] in stable condition.
== END 2023-08-17 15:35 | disposition home health service (06) | DRG 271 ==
LOC: MED/SURG 17:35
PROVIDERS: ADMIT Surgery; ATTEND Surgery
DX: M79.671 Pain in right foot; L03.115 Cellulitis of right lower limb; M79.604 Pain in right leg; Z72.0 Tobacco use; L97.511 Non-pressure chronic ulcer of other part of right foot limited to breakdown of skin; I70.223 Atherosclerosis of native arteries of extremities with rest pain, bilateral legs; I10 Essential (primary) hypertension; E87.1 Hypo-osmolality and hyponatremia; E11.65 Type 2 diabetes mellitus with hyperglycemia; B96.89 Other specified bacterial agents as the cause of diseases classified elsewhere; Z01.810 Encounter for preprocedural cardiovascular examination; M10.9 Gout, unspecified; J44.9 Chronic obstructive pulmonary disease, unspecified; I96 Gangrene, not elsewhere classified

== ENCOUNTER 2023-10-14 13:43 | Inpatient (IN) ==
[2023-10-14 14:54] LABS: BASOPHILS # (AUTO) 0.2 X10^3/uL (0.0-0.1); BASOPHILS % (AUTO) 2.2 % (0.2-1.0); EOSINOPHILS # (AUTO) 0.6 x10^3/uL (0.0-0.2); HEMATOCRIT 32.7 % (42.0-54.0); LYMPHOCYTES # (AUTO) 2.7 X10^3/uL (1.3-2.9); LYMPHOCYTES % (AUTO) 27.8 % (21.0-51.0); MEAN CORPUSCULAR HEMOGLOBIN 29.1 pg (27.0-34.0); MEAN CORPUSCULAR HGB CONC 33.6 g/dL (33.0-35.0); MEAN CORPUSCULAR VOLUME 86.5 fL (80.0-100.0); MEAN PLATELET VOLUME 7.1 fL (7.4-11.0); MONOCYTES # (AUTO) 0.6 x10^3/uL (0.3-0.8); MONOCYTES % (AUTO) 6.3 % (0.0-13.0); NEUTROPHILS # (AUTO) 5.6 x10^3/uL (2.2-4.8); NEUTROPHILS % (AUTO) 57.7 % (42.0-75.0); PLATELET COUNT 249 X10^3/uL (150.0-450.0); RED BLOOD COUNT 3.78 X10^6/uL (4.7-6.0); RED CELL DISTRIBUTION WIDTH 14.6 % (11.6-16.5); WHITE BLOOD COUNT 9.8 X10^3/uL (3.6-10.0)
[2023-10-14 15:38] VITALS: BMI 22.1
[2023-10-14] MEDS: ZOSYN VIAL 3.375 GRAMS 3.375 G in NS 100 ML IV 100 ML IV SCH (16:12)
[2023-10-14] MEDS: NS 250 ML IV 25 ML IV PRN (16:12)
--- NOTE | 2023-10-15 00:17 | DR.H&P ---
H&P History & Physical for Day of: H&P Date: 10/14/23 Chief Complaint Chief Complaint: gangrene rigth 5th toe and full thicness eschar dorsal right foot. History of Present Illness History of Present Illness: 72 year old male seen originally in early August of 2023 with gangrenous changes of the right foot with severe bilateral lower extremity ischemia . At that time he underwent sequential revascularization of both legs. The right leg done first with an occluded right tibial peroneal trunk and occluded right popliteal artery with severe disease pf the right superficial femoral artery. Atherectomy and drug coated balloon stenting of the occcluded popliteal artery and atherectomy and drug coated balloon angioplasty of the left tibial perobeal trunk. Two days Later the left leg was noted to have complete occlusion of the entire superficial femoral artery and treated with atherectomy and drug coated stenting of the mid and distal portions of this artery and drug coated balloon angioplasty of the the proximal left superficial femoral artery with good run off of the left foot. Patient has been followed by myself and Dr. Menon of Podiatry and has had no significant resolution of the eschar of the dorsum of the right foot with dry gangrene of the right fifth toe. Patient is admitted for further evaluation and possible amputation versus debridement and skin grafting . He will be started on IV antibiotics . Long histroy of tobacco abuse. Past Medical History Past Medical History: Gout and Hypertension Additional Medical History: tobacco abuse Past Surgical History Surgical History: Ortho Surgery and Other Family History Family Medical History: Diabetes Mellitus Social History Does patient currently use any type of tobacco product: Yes Type of Tobacco Use: Cigarettes Alcohol Use: None Drug Use: None Medications Home Medications: Home Medications Medication Instructions Recorded Confirmed Type diclofenac sodium 75 mg 75 mg PO BID 08/14/23 10/14/23 History tablet,delayed release lisinopril 20 1 tab PO QDAY 08/14/23 10/14/23 History mg-hydrochlorothiazide 25 mg tablet tadalafil 20 mg tablet 20 mg PO QDAY 08/14/23 10/14/23 History tramadol 50 mg tablet 50 mg PO Q4-6H PRN Pain 08/14/23 10/14/23 History Allergies Allergies Allergy/AdvReac Type Severity Reaction Status Date / Time No Known Drug Allergies Allergy Verified 08/10/23 19:30 Labs 10/14/23 14:42 Labs: Laboratory WBC 9.8 X10^3/uL (3.6-10.0) 10/14/23 14:42 RBC 3.78 X10^6/uL (4.7-6.0) L 10/14/23 14:42 Hgb 11.0 g/dL (13.5-18.0) L 10/14/23 14:42 Hct 32.7 % (42.0-54.0) L 10/14/23 14:42 MCV 86.5 fL (80.0-100.0) 10/14/23 14:42 MCH 29.1 pg (27.0-34.0) 10/14/23 14:42 MCHC 33.6 g/dL (33.0-35.0) 10/14/23 14:42 RDW 14.6 % (11.6-16.5) 10/14/23 14:42 Plt Count 249 X10^3/uL (150.0-450.0) 10/14/23 14:42 MPV 7.1 fL (7.4-11.0) L 10/14/23 14:42 Neut % (Auto) 57.7 % (42.0-75.0) 10/14/23 14:42 Lymph % (Auto) 27.8 % (21.0-51.0) 10/14/23 14:42 Lynn % (Auto) 6.3 % (0.0-13.0) 10/14/23 14:42 Eos % (Auto) 6.0 % (0.9-2.9) H 10/14/23 14:42 Baso % (Auto) 2.2 % (0.2-1.0) H 10/14/23 14:42 Neut # (Auto) 5.6 x10^3/uL (2.2-4.8) H 10/14/23 14:42 Lymph # (Auto) 2.7 X10^3/uL (1.3-2.9) 10/14/23 14:42 Lynn # (Auto) 0.6 x10^3/uL (0.3-0.8) 10/14/23 14:42 Eos # (Auto) 0.6 x10^3/uL (0.0-0.2) H 06/08/24 14:42 Baso # (Auto) 0.2 X10^3/uL (0.0-0.1) H 10/14/23 14:42 Absolute Nucleated RBC 0.0 /100WBC 10/14/23 14:42 Review of Systems Constitutional: See HPI Eyes: No Symptoms Reported ENT: No Symptoms Reported Respiratory: No Symptoms Reported Cardiovascular: No Symptoms Reported Gastrointestinal: No Symptoms Reported Genitourinary: No Symptoms Reported Musculoskeletal: See HPI Skin: See HPI Neurological: No Symptoms Reported Physical Exam Vital Signs: Vital Signs Temperature 98.1 F Pulse Rate 65 Pulse Rate 63 Pulse Rate 67 Pulse Rate 66 Pulse Rate 69 Pulse Rate 67 Pulse Rate 67 Pulse Rate 89 Pulse Rate 69 Pulse Rate 70 Pulse Rate 68 Pulse Rate 77 Pulse Rate 74 Pulse Rate 74 Pulse Rate 73 Pulse Rate 74 Pulse Rate 81 Pulse Rate 77 Pulse Rate 74 Pulse Rate 75 Pulse Rate 75 Pulse Rate 80 Pulse Rate 80 Pulse Rate 83 Pulse Rate 93 Pulse Rate 91 Pulse Rate 87 Pulse Rate 80 Pulse Rate 74 Pulse Rate 88 Pulse Rate 69 Pulse Rate 63 Respiratory Rate 14 Respiratory Rate 14 Respiratory Rate 17 Respiratory Rate 18 Respiratory Rate 15 Respiratory Rate 15 Respiratory Rate 17 Respiratory Rate 35 Respiratory Rate 16 Respiratory Rate 17 Respiratory Rate 16 Respiratory Rate 19 Respiratory Rate 15 Respiratory Rate 21 Respiratory Rate 18 Respiratory Rate 17 Respiratory Rate 30 Respiratory Rate 17 Respiratory Rate 14 Respiratory Rate 17 Respiratory Rate 15 Respiratory Rate 16 Respiratory Rate 25 Respiratory Rate 17 Respiratory Rate 15 Respiratory Rate 16 Respiratory Rate 21 Respiratory Rate 22 Respiratory Rate 17 Respiratory Rate 13 Respiratory Rate 20 Respiratory Rate 17 Blood Pressure 107/57 Blood Pressure 94/68 Blood Pressure 95/54 Blood Pressure 98/56 Blood Pressure 91/52 Blood Pressure 87/51 Blood Pressure 103/59 Blood Pressure 117/60 Blood Pressure 115/55 O2 Sat by Pulse Oximetry 100 O2 Sat by Pulse Oximetry 100 O2 Sat by Pulse Oximetry 100 O2 Sat by Pulse Oximetry 100 O2 Sat by Pulse Oximetry 100 O2 Sat by Pulse Oximetry 100 O2 Sat by Pulse Oximetry 100 O2 Sat by Pulse Oximetry 97 O2 Sat by Pulse Oximetry 100 O2 Sat by Pulse Oximetry 100 O2 Sat by Pulse Oximetry 100 O2 Sat by Pulse Oximetry 100 O2 Sat by Pulse Oximetry 100 O2 Sat by Pulse Oximetry 100 O2 Sat by Pulse Oximetry 100 O2 Sat by Pulse Oximetry 98 O2 Sat by Pulse Oximetry 100 O2 Sat by Pulse Oximetry 100 O2 Sat by Pulse Oximetry 100 O2 Sat by Pulse Oximetry 100 O2 Sat by Pulse Oximetry 100 O2 Sat by Pulse Oximetry 100 O2 Sat by Pulse Oximetry 100 O2 Sat by Pulse Oximetry 100 O2 Sat by Pulse Oximetry 89 O2 Sat by Pulse Oximetry 100 O2 Sat by Pulse Oximetry 100 O2 Sat by Pulse Oximetry 100 O2 Sat by Pulse Oximetry 100 O2 Sat by Pulse Oximetry 100 O2 Sat by Pulse Oximetry 100 O2 Sat by Pulse Oximetry 100 Oriented: Person and Place; negative Time Eyes: Normal Ear: Normal Nose: Normal Throat: Normal Respiratory: Clear Throughout Cardiovascular: Other (atrial fibrillation, Right foot posteriot tibial and anterior tibial arteries have biphasic arterial flow, same of the left ankle ) : Normal Auscultation: Bowel Sounds: Other (irregularly, irregular heart rhythm) Palpation: Normal Tenderness: Normal Skin: Wound (2 areas of eschar over the dorsum of the the right foot each measuring approximately 12 by 6 centimeters with contraction from the edges of t he wounds. Patient also noted to have warm feet bilaterally with dry gangrenous right fifth toe ) Musculoskeletal: Normal Psychiatric: Normal Mood Description: Calm Affect: Normal Speech Pattern: Clear and Appropriate Assessment/Plan (1) Atherosclerosis of [place] arteries of extremities with rest pain, right leg: Status: Acute Plan: right foot still appears to be viable except for the right fifth toe. Will obtain lower extremity arterial Doppler studies to formally assess the flow and consider Debridement and possible skin grafting vs. amputation of the right lef below the knee. (2) Atherosclerosis of [place] arteries of extremities with rest pain, left leg: Status: Acute Plan: left leg is stable in doing well (3) Tobacco abuse: Status: Acute Plan: abstain from Tobacco (4) Essential (primary) hypertension: Status: Acute Plan: home medications
--- NOTE | 2023-10-15 02:02 | EKG ---
Test Reason : preop clearance Blood Pressure : */* mmHG Vent. Rate : 72 BPM Atrial Rate : 72 BPM P-R Int : 194 ms QRS Dur : 90 ms QT Int : 408 ms P-R-T Axes : 79 -24 37 degrees QTc Int : 446 ms Normal sinus rhythm Nonspecific T wave abnormality Abnormal ECG When compared with ECG of 10-AUG-2023 21:34, No significant change was found Confirmed by Will Calhoun MD ([id number]) on 10/15/2023 6:53:13 AM Referred By: Confirmed By: Will Calhoun MD
[2023-10-15] MEDS: XARELTO PO SCH (08:35)
[2023-10-15] MEDS: ASPIRIN EC 81 MG PO SCH (08:35)
[2023-10-15] MEDS: ZESTORETIC 20/25 MG PO SCH (08:35)
[2023-10-15] MEDS: NICOTINE PATCH TD SCH (08:36)
--- NOTE | 2023-10-15 17:03 | NOTE.SOAP ---
Soap Note Note for Day of Date of Exam: 10/15/23 Subjective Data Subjective Data: Stable, no change of the right foot Objective Data Temperature: 97.5 F Pulse Rate: 67 Respiratory Rate: 17 Blood Pressure: 127/68 O2 Sat by Pulse Oximetry: 98 Objective Data: No change of right foot. Labs from [place] reviewed . WBC=9.8, Dopplers reviewed from [place] showing no significant stenosis of arteries right leg after my arterial intervention. Assessment Assessment: Non-healing wounds right foot, dry gangrene right 5th toe. Plan Plan: Will amputate right small toe and debide eschar and apply split thickness skin graft.
[2023-10-15] MEDS: DILAUDID INJ IVP PRN (19:45)
[2023-10-15] MEDS ORDERED: HIBICLENS WASH ONE (19:56)
[2023-10-15] MEDS: HIBICLENS WASH EXT ONE (20:44)
[2023-10-16] MEDS: NS 250 ML IV 250 ML IV PRN (02:07)
[2023-10-16] MEDS: LR 1,000 ML IV 1,000 ML IV ONE (07:25)
[2023-10-16] MEDS: NS 100 ML IV 100 ML ONE (07:44)
[2023-10-16] MEDS: ANCEF VIAL 1 GRAM ONE (07:44)
[2023-10-16] MEDS: FENTANYL VIAL INJ 100 mcg ONE ×2 (07:51→08:19)
[2023-10-16] MEDS: BETADINE SOLN ONE (07:51)
[2023-10-16] MEDS: VERSED ONE (07:51)
[2023-10-16] MEDS: DIPRIVAN VIAL 20 ML ONE (07:51)
[2023-10-16] MEDS ORDERED: XYLOCAINE 2 % (PLAIN) ONE (07:51)
[2023-10-16] MEDS: MARCAINE 0.5% ONE (08:14)
[2023-10-16] MEDS: XYLOCAINE 1% and EPINEPHRINE 1:100,000 ONE (08:14)
[2023-10-16] MEDS ORDERED: BENADRYL INJ 50 MG VIAL IVP PRN (08:22)
[2023-10-16] MEDS ORDERED: DILAUDID INJ IVP PRN (08:22)
[2023-10-16] MEDS ORDERED: BARHEMSYS INJ IVP PRN (08:22)
[2023-10-16] MEDS ORDERED: REGLAN INJ 10 MG VIAL IVP PRN (08:22)
[2023-10-16] MEDS ORDERED: ZOFRAN INJ 4 MG VIAL IVP PRN (08:22)
[2023-10-16] MEDS: EPHEDRINE SULFATE INJ ONE (08:41)
--- NOTE | 2023-10-16 09:07 | OR.IMMED ---
IMMEDIATE POST-OP NOTE Immediate Post-Op Note Date of surgery/procedure: 10/16/23 Pre-Op Diagnosis: eschar right foot, dry gangrene right small toe Post-Op Diagnosis: same Procedure: right small toe amputation, debride right foot and apply split thickness skin graft Description of Procedure: dictated Surgeon/Bankruptcy Paralegal: Magdy Findings: as above Estimated Blood Loss: minimal Complications: none Progress Notes: returned to floor
[2023-10-16] MEDS: ZOFRAN INJ 4 MG VIAL ONE (10:32)
[2023-10-16] MEDS: DILAUDID INJ ONE ×2 (10:34)
--- NOTE | 2023-10-16 13:19 | DR.OPNOTE ---
OP NOTE Pre-Op Diagnosis: dry gangrene right 5th toe and and significant eschar wounds right foot. Post-Op Diagnosis: same Procedure Date Date Of Procedure: 10/16/23 Procedure: PROCEDURE: Right fifth toe Ray amputation, debride right foot wounds, split thickness skin grafting of wounds of the right foot NARRATIVE : The patient was taken to the operative suite and placed in the supine position. General endotracheal anesthesia induced. The entire right leg prepped and draped in sterile fashion. Time out for the procedure obtained. Patient had a wound to the lateral dorsal aspect of the right foot measuring 10 by 5 centimeters and the medial dorsal right foot measuring 5 by 2.5 cm .All of the eschar of both wounds were removed with a number 15 knife blade and electrocautery . There was excellent bleeding. Elliptical incision made around the base of the right fifth toe and it dissected down to the metatarsal phalangeal joint and the toe removed in it's entirety. The head of the metatarsal removed with a Gentry juer. All bleeding stopped with electrocautery . Patient had thickened skin over the right heel which was removed sharply. Mineral oil applied to the right thigh and a 3-inch wide skin graft harvested at 12 thousands of an inch with the dermatome and then meshed to 1 and 1/2 times. The graft was divided in 2 portions and applied to each of these 2 wounds and secured to the wounds with interrupted 3 -0 Vicryl sutures. Xeroform placed over the skin grafts and the harvest site. Each covered with 4x4's, Kerlix and 6 inch Dmitriy wrap. Patient extubated and taken to the PACU in good condition. Type of Anesthesia: General Anesthetic w/ETT Findings: as above Specimen/Pathology: right 5th toe and eschar Type of Fluids Used:: Lactated Ringers EBL: minimal Drains/Tubes Placed: None Complications:: none Needle/Sponge Count:: correct Disposition/Condition: Pt. tolerated procedure without difficulty. Extubated and taken to PACU in stable condition.
[2023-10-17 04:54] LABS: BASOPHILS # (AUTO) 0.1 X10^3/uL (0.0-0.1); BASOPHILS % (AUTO) 0.7 % (0.2-1.0); EOSINOPHILS # (AUTO) 0.8 x10^3/uL (0.0-0.2); EOSINOPHILS % (AUTO) 7.7 % (0.9-2.9); HEMATOCRIT 30.9 % (42.0-54.0); HEMOGLOBIN 10.4 g/dL (13.5-18.0); LYMPHOCYTES # (AUTO) 2.3 X10^3/uL (1.3-2.9); LYMPHOCYTES % (AUTO) 21.1 % (21.0-51.0); MEAN CORPUSCULAR HEMOGLOBIN 29.3 pg (27.0-34.0); MEAN CORPUSCULAR HGB CONC 33.7 g/dL (33.0-35.0); MEAN PLATELET VOLUME 7.3 fL (7.4-11.0); MONOCYTES # (AUTO) 0.8 x10^3/uL (0.3-0.8); MONOCYTES % (AUTO) 7.1 % (0.0-13.0); NEUTROPHILS # (AUTO) 6.9 x10^3/uL (2.2-4.8); NEUTROPHILS % (AUTO) 63.4 % (42.0-75.0); PLATELET COUNT 242 X10^3/uL (150.0-450.0); RED BLOOD COUNT 3.55 X10^6/uL (4.7-6.0); RED CELL DISTRIBUTION WIDTH 14.7 % (11.6-16.5); WHITE BLOOD COUNT 10.9 X10^3/uL (3.6-10.0)
[2023-10-17 05:01] LABS: BLOOD UREA NITROGEN 12 mg/dL (7-18); CALCIUM 8.4 mg/dL (8.5-10.1); CARBON DIOXIDE 27.2 mmol/L (21-32); CHLORIDE 107 mmol/L (98-107); CREATININE 1.25 mg/dL (0.70-1.30); GLUCOSE 94 mg/dL (65-99); POTASSIUM 3.3 mmol/L (3.5-5.1); SODIUM 142 mmol/L (136-145); eGFR NON BLACK RACES > 60 (>60)
[2023-10-17] MEDS ORDERED: CONSULT PHARMACY - POTASSIUM & MAGNESIUM XX SCH (08:00)
[2023-10-17] MEDS: K-DUR TAB 20 MEQ PO SCH (08:42)
[2023-10-17] MEDS: MAG-OX TAB PO SCH (11:01)
[2023-10-17] MEDS: MILK OF MAGNESIA PO PRN (11:08)
[2023-10-17] MEDS: COLACE CAP 100 MG PO PRN (11:08)
--- NOTE | 2023-10-17 23:32 | NOTE.SOAP ---
Soap Note Note for Day of Date of Exam: 10/17/23 Subjective Data Subjective Data: POD # 2 s/p right 5th toe amputation, debridement of right foot wounds and STSG. Doing well. Pain controlled . Objective Data Temperature: 98.7 F Pulse Rate: 80 Respiratory Rate: 16 Blood Pressure: 126/63 O2 Sat by Pulse Oximetry: 90 Objective Data: Dressings intact right foot and right thigh harvest site Hgb= 10.4, Cr=1.25 Assessment Assessment: as above Plan Plan: await placement
[2023-10-18 04:45] LABS: BLOOD UREA NITROGEN 11 mg/dL (7-18); CALCIUM 8.2 mg/dL (8.5-10.1); CARBON DIOXIDE 32.1 mmol/L (21-32); CHLORIDE 104 mmol/L (98-107); CREATININE 1.22 mg/dL (0.70-1.30); GLUCOSE 101 mg/dL (65-99); MAGNESIUM 1.9 mg/dL (2.0-2.9); POTASSIUM 3.6 mmol/L (3.5-5.1); SODIUM 142 mmol/L (136-145); eGFR NON BLACK RACES > 60 (>60)
[2023-10-18] MEDS ORDERED: CONSULT PHARMACY - POTASSIUM & MAGNESIUM XX SCH (07:00)
[2023-10-18] MEDS: K-DUR TAB 20 MEQ PO SCH (08:29)
[2023-10-18] MEDS: MAG-OX TAB PO SCH (08:29)
[2023-10-18] MEDS ORDERED: NS 250 ML IV 250 ML IV ONE (15:58)
[2023-10-19 04:20] VITALS: TEMP 98.3
[2023-10-19 05:12] LABS: MAGNESIUM 2.1 mg/dL (2.0-2.9); POTASSIUM 3.7 mmol/L (3.5-5.1)
[2023-10-19] MEDS ORDERED: CONSULT PHARMACY - POTASSIUM & MAGNESIUM XX SCH (07:00)
[2023-10-19] MEDS ORDERED: K-DUR TAB 20 MEQ PO ONE (07:48)
[2023-10-19] MEDS: K-DUR TAB 20 MEQ PO SCH (09:04)
--- NOTE | 2023-10-19 09:13 | W.DIS.FURT ---
Summary of Discharge Discharge Summary of Date Date of Exam: 10/19/23 Admission Date Date of Admission: 10/14/23 Admission Diagnosis Hospital Course: This is a 72 year old male with significatn history of tobacco abuse who presented recently with bilateral lower extremity ischemia with full thickness skin wounds of the dorsum of the right foot. He underwent recent revascularization of both legs. he presented back to the hospital in [place], [place] with dry gangrene the right fifth toe and still with the significant eschar to the wounds of the dorsum of the right foot. He was admitted and placed on IV antibiotics. he was taken to the operating Suite on October and underwent amputation of the right fifth toe with debridement of the eschar. He had thickness skin grafting of the right foot wounds with harvest from the right thigh. Pre-procedure arterial doppler showed good flow throughout the entire right leg and the patient had very good bleeding at the time of the procedure. He has done well and will be discharged to [facility] today on his usual medications including Xarelto and aspirin. He will be given prescription for Percocet, 5 milligram tablets 1 every 6 hours PRN pain. He will follow up with me in 1 week. Vital Signs: Vital Signs (72 hours) 10/17/23 23:32 10/16/23 09:01 10/16/23 09:11 Temperature 98.7 F 97.3 F L Pulse Rate 80 86 Respiratory Rate 16 18 18 Blood Pressure 126/63 110/62 O2 Sat by Pulse Oximetry 90 L 98 Oxygen Delivery Method Aerosol Face Tent Oxygen Flow Rate FIO2% 10/16/23 09:06 10/16/23 09:11 10/16/23 09:18 Temperature Pulse Rate 94 H 81 Respiratory Rate 18 18 17 Blood Pressure 125/58 119/58 O2 Sat by Pulse Oximetry 98 98 Oxygen Delivery Method Aerosol Face Tent Aerosol Face Tent Oxygen Flow Rate FIO2% 10/16/23 09:16 10/16/23 09:21 10/16/23 09:26 Temperature Pulse Rate 81 76 76 Respiratory Rate 18 18 18 Blood Pressure 126/59 128/60 117/58 O2 Sat by Pulse Oximetry 98 98 98 Oxygen Delivery Method Aerosol Face Tent Aerosol Face Tent Aerosol Face Tent Oxygen Flow Rate FIO2% 10/16/23 09:32 10/16/23 09:31 10/16/23 09:39 Temperature Pulse Rate 73 Respiratory Rate 18 18 Blood Pressure 119/62 116/63 O2 Sat by Pulse Oximetry 98 Oxygen Delivery Method Aerosol Face Tent Oxygen Flow Rate FIO2% 10/16/23 09:39 10/16/23 09:45 10/16/23 09:45 Temperature Pulse Rate 71 74 Respiratory Rate 9 L Blood Pressure 114/60 O2 Sat by Pulse Oximetry 92 L 93 L Oxygen Delivery Method Oxygen Flow Rate FIO2% 10/16/23 10:00 10/16/23 10:00 10/16/23 10:15 Temperature Pulse Rate 69 64 Respiratory Rate 18 10 L Blood Pressure 118/62 O2 Sat by Pulse Oximetry 95 95 Oxygen Delivery Method Oxygen Flow Rate FIO2% 10/16/23 10:15 10/16/23 10:30 10/16/23 10:30 Temperature Pulse Rate 63 Respiratory Rate 16 Blood Pressure 117/65 113/65 O2 Sat by Pulse Oximetry 94 L Oxygen Delivery Method Oxygen Flow Rate FIO2% 10/16/23 10:45 10/16/23 10:45 10/16/23 11:00 Temperature Pulse Rate 63 Respiratory Rate 8 L Blood Pressure 105/64 112/68 O2 Sat by Pulse Oximetry 95 Oxygen Delivery Method Oxygen Flow Rate FIO2% 10/16/23 11:00 10/16/23 11:15 10/16/23 11:30 Temperature Pulse Rate 63 62 62 Respiratory Rate 13 11 L 12 Blood Pressure O2 Sat by Pulse Oximetry 94 L 95 96 Oxygen Delivery Method Oxygen Flow Rate FIO2% 10/16/23 11:45 10/16/23 12:00 10/16/23 12:00 Temperature Pulse Rate 62 63 Respiratory Rate 8 L 9 L Blood Pressure 114/64 O2 Sat by Pulse Oximetry 96 95 Oxygen Delivery Method Oxygen Flow Rate FIO2% 10/16/23 12:15 10/16/23 12:30 10/16/23 12:45 Temperature Pulse Rate 63 62 62 Respiratory Rate 10 L 9 L 11 L Blood Pressure O2 Sat by Pulse Oximetry 95 97 96 Oxygen Delivery Method Oxygen Flow Rate FIO2% 10/16/23 13:00 10/16/23 13:00 10/16/23 13:15 Temperature Pulse Rate 62 64 Respiratory Rate 9 L 17 Blood Pressure 104/63 O2 Sat by Pulse Oximetry 96 94 L Oxygen Delivery Method Oxygen Flow Rate FIO2% 10/16/23 09:30 10/16/23 13:30 10/16/23 13:45 Temperature Pulse Rate 60 58 L Respiratory Rate 9 L 10 L Blood Pressure O2 Sat by Pulse Oximetry 96 96 Oxygen Delivery Method Nasal Cannula Oxygen Flow Rate 2 FIO2% 28 10/16/23 14:00 10/16/23 14:00 10/16/23 14:15 Temperature Pulse Rate 59 L 59 L Respiratory Rate 10 L 11 L Blood Pressure 123/70 O2 Sat by Pulse Oximetry 98 96 Oxygen Delivery Method Oxygen Flow Rate FIO2% 10/16/23 14:30 10/16/23 14:45 10/16/23 15:00 Temperature Pulse Rate 63 60 Respiratory Rate 12 11 L Blood Pressure 121/74 O2 Sat by Pulse Oximetry 98 94 L Oxygen Delivery Method Oxygen Flow Rate FIO2% 10/16/23 15:00 10/16/23 15:15 10/16/23 15:30 Temperature Pulse Rate 68 57 L 57 L Respiratory Rate 22 10 L 14 Blood Pressure O2 Sat by Pulse Oximetry 94 L 97 96 Oxygen Delivery Method Oxygen Flow Rate FIO2% 10/16/23 15:45 10/16/23 16:00 10/16/23 16:00 Temperature Pulse Rate 56 L 55 L Respiratory Rate 11 L 10 L Blood Pressure 122/68 O2 Sat by Pulse Oximetry 96 98 Oxygen Delivery Method Oxygen Flow Rate FIO2% 10/16/23 16:15 10/16/23 16:30 10/16/23 16:45 Temperature 97.7 F Pulse Rate 55 L 57 L 57 L Respiratory Rate 10 L 10 L 13 Blood Pressure O2 Sat by Pulse Oximetry 98 98 97 Oxygen Delivery Method Oxygen Flow Rate FIO2% 10/16/23 17:00 10/16/23 17:00 10/16/23 17:15 Temperature Pulse Rate 57 L 58 L Respiratory Rate 13 14 Blood Pressure 127/67 O2 Sat by Pulse Oximetry 97 97 Oxygen Delivery Method Oxygen Flow Rate FIO2% 10/16/23 17:30 10/16/23 17:45 10/16/23 18:00 Temperature Pulse Rate 60 68 Respiratory Rate 13 15 Blood Pressure 123/68 O2 Sat by Pulse Oximetry 100 99 Oxygen Delivery Method Oxygen Flow Rate FIO2% 10/16/23 18:00 10/16/23 18:15 10/16/23 18:30 Temperature Pulse Rate 61 66 65 Respiratory Rate 13 13 13 Blood Pressure O2 Sat by Pulse Oximetry 98 100 98 Oxygen Delivery Method Oxygen Flow Rate FIO2% 10/16/23 18:45 10/16/23 19:00 10/16/23 19:00 Temperature 97.9 F Pulse Rate 67 71 Respiratory Rate 13 10 L Blood Pressure 108/57 O2 Sat by Pulse Oximetry 98 96 Oxygen Delivery Method Room Air Room Air Oxygen Flow Rate FIO2% 10/16/23 20:00 10/16/23 21:00 10/16/23 22:00 Temperature Pulse Rate 61 64 69 Respiratory Rate 9 L 11 L 9 L Blood Pressure 126/68 134/63 119/68 O2 Sat by Pulse Oximetry 99 98 97 Oxygen Delivery Method Room Air Room Air Room Air Oxygen Flow Rate FIO2% 10/16/23 23:00 10/17/23 00:00 10/17/23 01:00 Temperature 98.2 F Pulse Rate 64 68 72 Respiratory Rate 17 13 13 Blood Pressure 127/65 106/58 112/61 O2 Sat by Pulse Oximetry 96 90 L 96 Oxygen Delivery Method Room Air Room Air Room Air Oxygen Flow Rate FIO2% 10/17/23 02:00 10/17/23 03:00 10/17/23 04:00 Temperature 98.1 F Pulse Rate 67 69 74 Respiratory Rate 12 16 17 Blood Pressure 114/62 118/67 103/69 O2 Sat by Pulse Oximetry 94 L 94 L 92 L Oxygen Delivery Method Room Air Room Air Room Air Oxygen Flow Rate FIO2% 10/17/23 05:00 10/17/23 03:35 10/17/23 04:05 Temperature Pulse Rate 69 Respiratory Rate 12 16 17 Blood Pressure 111/59 O2 Sat by Pulse Oximetry 92 L Oxygen Delivery Method Room Air Oxygen Flow Rate FIO2% 10/16/23 21:45 10/17/23 06:00 10/17/23 07:00 Temperature Pulse Rate 70 64 Respiratory Rate 15 13 Blood Pressure 118/60 O2 Sat by Pulse Oximetry 94 L 97 Oxygen Delivery Method Room Air Room Air Oxygen Flow Rate 2 FIO2% 28 10/17/23 07:00 10/17/23 07:00 10/17/23 08:30 Temperature Pulse Rate Respiratory Rate Blood Pressure 121/69 O2 Sat by Pulse Oximetry Oxygen Delivery Method Room Air Nasal Cannula Oxygen Flow Rate 2 FIO2% 28 10/17/23 08:00 10/17/23 08:00 10/17/23 09:00 Temperature 98.0 F Pulse Rate 71 82 Respiratory Rate 13 19 Blood Pressure 123/72 O2 Sat by Pulse Oximetry 95 84 L Oxygen Delivery Method Oxygen Flow Rate FIO2% 10/17/23 09:00 10/17/23 10:00 10/17/23 11:00 Temperature Pulse Rate 64 64 Respiratory Rate 14 13 Blood Pressure 125/80 O2 Sat by Pulse Oximetry 94 L 96 Oxygen Delivery Method Oxygen Flow Rate FIO2% 10/17/23 11:00 10/17/23 12:00 10/17/23 12:00 Temperature 98.5 F Pulse Rate 60 Respiratory Rate 12 Blood Pressure 112/61 128/66 O2 Sat by Pulse Oximetry 97 Oxygen Delivery Method Oxygen Flow Rate FIO2% 10/17/23 13:00 10/17/23 13:00 10/17/23 14:00 Temperature Pulse Rate 61 Respiratory Rate 13 Blood Pressure 123/66 128/70 O2 Sat by Pulse Oximetry 97 Oxygen Delivery Method Oxygen Flow Rate FIO2% 10/17/23 14:00 10/17/23 15:00 10/17/23 15:00 Temperature Pulse Rate 66 65 Respiratory Rate 14 14 Blood Pressure 131/64 O2 Sat by Pulse Oximetry 95 96 Oxygen Delivery Method Oxygen Flow Rate FIO2% 10/17/23 16:00 10/17/23 16:00 10/17/23 17:00 Temperature 98.7 F Pulse Rate 69 71 Respiratory Rate 18 16 Blood Pressure 127/83 O2 Sat by Pulse Oximetry 96 94 L Oxygen Delivery Method Oxygen Flow Rate FIO2% 10/17/23 17:00 10/17/23 18:00 10/17/23 18:00 Temperature Pulse Rate 66 Respiratory Rate 17 Blood Pressure 131/65 126/63 O2 Sat by Pulse Oximetry 96 Oxygen Delivery Method Oxygen Flow Rate FIO2% 10/17/23 20:42 10/17/23 20:42 10/17/23 19:00 Temperature Pulse Rate 80 Respiratory Rate Blood Pressure O2 Sat by Pulse Oximetry 90 L Oxygen Delivery Method Nasal Cannula Room Air Oxygen Flow Rate 2 FIO2% 28 10/17/23 19:00 10/17/23 20:00 10/17/23 21:00 Temperature 99.2 F Pulse Rate 68 70 71 Respiratory Rate 18 17 16 Blood Pressure 124/62 122/61 124/60 O2 Sat by Pulse Oximetry 95 96 95 Oxygen Delivery Method Room Air Room Air Room Air Oxygen Flow Rate FIO2% 10/17/23 22:00 10/17/23 23:00 10/18/23 00:00 Temperature 98.7 F Pulse Rate 69 66 69 Respiratory Rate 16 15 17 Blood Pressure 121/62 119/62 124/78 O2 Sat by Pulse Oximetry 94 L 95 96 Oxygen Delivery Method Room Air Room Air Room Air Oxygen Flow Rate FIO2% 10/18/23 01:00 10/18/23 02:00 10/18/23 03:00 Temperature Pulse Rate 62 63 65 Respiratory Rate 13 15 12 Blood Pressure 108/64 117/61 132/69 O2 Sat by Pulse Oximetry 93 L 93 L 94 L Oxygen Delivery Method Room Air Room Air Room Air Oxygen Flow Rate FIO2% 10/18/23 04:00 10/18/23 05:00 10/18/23 06:00 Temperature 98.5 F Pulse Rate 66 70 69 Respiratory Rate 15 15 13 Blood Pressure 127/70 125/69 129/70 O2 Sat by Pulse Oximetry 91 L 90 L 93 L Oxygen Delivery Method Room Air Room Air Room Air Oxygen Flow Rate FIO2% 10/18/23 07:00 10/18/23 07:00 10/18/23 07:00 Temperature Pulse Rate 72 Respiratory Rate 15 Blood Pressure 115/67 O2 Sat by Pulse Oximetry 92 L Oxygen Delivery Method Room Air Oxygen Flow Rate FIO2% 10/18/23 07:00 10/18/23 08:00 10/18/23 08:01 Temperature Pulse Rate 78 Respiratory Rate 15 Blood Pressure 115/67 132/67 O2 Sat by Pulse Oximetry 89 L Oxygen Delivery Method Oxygen Flow Rate FIO2% 10/18/23 08:01 10/18/23 08:01 10/18/23 09:35 Temperature 98.2 F Pulse Rate 75 75 Respiratory Rate 17 Blood Pressure 132/67 O2 Sat by Pulse Oximetry 91 L 94 L Oxygen Delivery Method Oxygen Flow Rate FIO2% 10/18/23 09:36 10/18/23 09:36 10/18/23 10:00 Temperature Pulse Rate 75 78 Respiratory Rate 14 22 Blood Pressure 103/60 103/80 O2 Sat by Pulse Oximetry 95 97 Oxygen Delivery Method Oxygen Flow Rate FIO2% 10/18/23 10:08 10/18/23 10:01 10/18/23 10:01 Temperature Pulse Rate Respiratory Rate Blood Pressure 103/80 103/80 O2 Sat by Pulse Oximetry Oxygen Delivery Method Room Air Oxygen Flow Rate 2 FIO2% 21 10/18/23 10:01 10/18/23 11:00 10/18/23 11:01 Temperature Pulse Rate 81 72 74 Respiratory Rate 15 13 14 Blood Pressure O2 Sat by Pulse Oximetry 88 L 90 L 95 Oxygen Delivery Method Oxygen Flow Rate FIO2% 10/18/23 11:01 10/18/23 12:00 10/18/23 12:00 Temperature 98.5 F Pulse Rate 72 Respiratory Rate 15 Blood Pressure 128/64 116/67 O2 Sat by Pulse Oximetry 92 L Oxygen Delivery Method Oxygen Flow Rate FIO2% 10/18/23 13:00 10/18/23 13:00 10/18/23 14:00 Temperature Pulse Rate 72 73 Respiratory Rate 16 15 Blood Pressure 120/68 O2 Sat by Pulse Oximetry 91 L 87 L Oxygen Delivery Method Oxygen Flow Rate FIO2% 10/18/23 14:00 10/18/23 15:00 10/18/23 15:00 Temperature Pulse Rate 80 Respiratory Rate 13 Blood Pressure 118/70 127/76 O2 Sat by Pulse Oximetry 92 L Oxygen Delivery Method Oxygen Flow Rate FIO2% 10/18/23 16:00 10/18/23 16:00 10/18/23 16:00 Temperature 98.8 F Pulse Rate 70 70 Respiratory Rate 13 13 Blood Pressure 133/66 O2 Sat by Pulse Oximetry 94 L 94 L Oxygen Delivery Method Oxygen Flow Rate FIO2% 10/18/23 16:00 10/18/23 16:00 10/18/23 17:00 Temperature Pulse Rate 73 Respiratory Rate 14 Blood Pressure 133/66 133/66 O2 Sat by Pulse Oximetry 92 L Oxygen Delivery Method Oxygen Flow Rate FIO2% 10/18/23 17:00 10/18/23 18:00 10/18/23 18:00 Temperature Pulse Rate 75 Respiratory Rate 15 Blood Pressure 118/61 133/76 O2 Sat by Pulse Oximetry 91 L Oxygen Delivery Method Oxygen Flow Rate FIO2% 10/18/23 19:00 10/18/23 19:00 10/18/23 20:21 Temperature Pulse Rate 88 Respiratory Rate 17 Blood Pressure 110/63 O2 Sat by Pulse Oximetry 92 L Oxygen Delivery Method Room Air Room Air Nasal Cannula Oxygen Flow Rate 2 FIO2% 10/18/23 20:22 10/18/23 20:00 10/18/23 21:00 Temperature 98.5 F Pulse Rate 87 80 76 Respiratory Rate 16 15 Blood Pressure 106/56 116/72 O2 Sat by Pulse Oximetry 98 94 L 95 Oxygen Delivery Method Room Air Room Air Oxygen Flow Rate FIO2% 10/19/23 01:15 10/18/23 22:00 10/18/23 23:00 Temperature Pulse Rate 77 70 Respiratory Rate 21 16 Blood Pressure 119/74 127/60 O2 Sat by Pulse Oximetry 97 94 L Oxygen Delivery Method Nasal Cannula Room Air Room Air Oxygen Flow Rate 2 FIO2% 28 10/19/23 00:00 10/19/23 01:00 10/19/23 02:00 Temperature 98.8 F Pulse Rate 71 74 72 Respiratory Rate 15 16 17 Blood Pressure 117/70 113/65 111/67 O2 Sat by Pulse Oximetry 95 96 96 Oxygen Delivery Method Room Air Room Air Room Air Oxygen Flow Rate FIO2% 10/19/23 03:00 10/19/23 04:00 10/19/23 05:00 Temperature 98.3 F Pulse Rate 65 68 77 Respiratory Rate 15 22 18 Blood Pressure 114/71 117/69 106/60 O2 Sat by Pulse Oximetry 96 95 96 Oxygen Delivery Method Room Air Room Air Room Air Oxygen Flow Rate FIO2% 10/19/23 06:00 Temperature Pulse Rate 67 Respiratory Rate 16 Blood Pressure 111/67 O2 Sat by Pulse Oximetry 95 Oxygen Delivery Method Room Air Oxygen Flow Rate FIO2% Labs: Laboratory Last Values WBC 10.9 X10^3/uL (3.6-10.0) H 10/17/23 04:01 RBC 3.55 X10^6/uL (4.7-6.0) L 10/17/23 04:01 Hgb 10.4 g/dL (13.5-18.0) L 10/17/23 04:01 Hct 30.9 % (42.0-54.0) L 10/17/23 04:01 MCV 87.0 fL (80.0-100.0) 10/17/23 04:01 MCH 29.3 pg (27.0-34.0) 10/17/23 04:01 MCHC 33.7 g/dL (33.0-35.0) 10/17/23 04:01 RDW 14.7 % (11.6-16.5) 10/17/23 04:01 Plt Count 242 X10^3/uL (150.0-450.0) 10/17/23 04:01 MPV 7.3 fL (7.4-11.0) L 10/17/23 04:01 Neut % (Auto) 63.4 % (42.0-75.0) 10/17/23 04:01 Lymph % (Auto) 21.1 % (21.0-51.0) 10/17/23 04:01 [place] % (Auto) 7.1 % (0.0-13.0) 10/17/23 04:01 Eos % (Auto) 7.7 % (0.9-2.9) H 10/17/23 04:01 Baso % (Auto) 0.7 % (0.2-1.0) 10/17/23 04:01 Neut # (Auto) 6.9 x10^3/uL (2.2-4.8) H 10/17/23 04:01 Lymph # (Auto) 2.3 X10^3/uL (1.3-2.9) 10/17/23 04:01 [place] # (Auto) 0.8 x10^3/uL (0.3-0.8) 10/17/23 04:01 Eos # (Auto) 0.8 x10^3/uL (0.0-0.2) H 10/17/23 04:01 Baso # (Auto) 0.1 X10^3/uL (0.0-0.1) 10/17/23 04:01 Absolute Nucleated RBC 0.0 /100WBC 10/17/23 04:01 Sodium 142 mmol/L (136-145) 10/18/23 04:01 Corrected Sodium TNP 10/18/23 04:01 Potassium 3.7 mmol/L (3.5-5.1) 10/19/23 04:10 Chloride 104 mmol/L (98-107) 10/18/23 04:01 Carbon Dioxide 32.1 mmol/L (21-32) H 10/18/23 04:01 BUN 11 mg/dL (7-18) 10/18/23 04:01 Creatinine 1.22 mg/dL (0.70-1.30) 10/18/23 04:01 Est GFR (MDRD) Af Amer > 60 (>60) 10/18/23 04:01 Est GFR (MDRD) Non-Af > 60 (>60) 10/18/23 04:01 Glucose 101 mg/dL (65-99) H 10/18/23 04:01 Calcium 8.2 mg/dL (8.5-10.1) L 10/18/23 04:01 Magnesium 2.1 mg/dL (2.0-2.9) 10/19/23 04:10 Stl Occult Blood (IFOB) Negative (NEGATIVE) 10/18/23 10:20 Reason For Visit: PERIPHERAL VASCULAR DISEASE, OSTEOMYELITIS Discharge Date Discharge Date: 10/19/23 Discharge Diagnosis All Active Problems (Updated 08/11/23 @ 14:32 by Sarabjit Curran) Atherosclerosis of [place] arteries of extremities with rest pain, right leg (Acute) Cellulitis of right foot (Acute) Atherosclerosis of knik arteries of extremities with rest pain, left leg (Acute) Tobacco abuse (Acute) Essential (primary) hypertension (Acute) Gout (Acute) Plan of Treatment: Continue with present treatment and follow up plan. Pt is to keep follow up ap pointment as instructed and take medications as ordered. Discharge Medications Discharge Medications: No Known Drug Allergies Allergy (Verified 08/10/23 19:30) Discharge Disposition Assessment: see hospital course Discharge Plan Discharge Plan Hospital Course: This is a 72 year old male with significatn history of tobacco abuse who presented recently with bilateral lower extremity ischemia with full thickness skin wounds of the dorsum of the right foot. He underwent recent revascularization of both legs. he presented back to the hospital in [place], [place] with dry gangrene the right fifth toe and still with the significant eschar to the wounds of the dorsum of the right foot. He was admitted and placed on IV antibiotics. he was taken to the operating Suite on October the and underwent amputation of the right fifth toe with debridement of the eschar. He had thickness skin grafting of the right foot wounds with harvest from the right thigh. Pre-procedure arterial doppler showed good flow throughout the entire right leg and the patient had very good bleeding at the time of the procedure. He has done well and will be discharged to [facility] on his usual medications including Xarelto and aspirin. He will be given prescription for Percocet, 5 milligram tablets 1 every 6 hours PRN pain. He will follow up with me in 1 week. Patient Disposition: XFER SNF Condition: Stable Health Concerns: Post Hospitalization: new medications and changes needed to prevent readmission or further decline. Pt educated and given instructions on all concerns. Plan of Treatment: Continue with present treatment and follow up plan. Pt is to keep follow up appointment as instructed and take medications as ordered. Assessment: see hospital course Prescription drug monitoring program results: PDMP was not reviewed Prescriptions: New oxycodone-acetaminophen [Percocet] 5-325 mg tablet 1 tab PO Q6H MDD 4 PRN (Reason: pain) Qty: 30 0RF Continued tramadol 50 mg Tablet 50 mg PO Q4-6H PRN (Reason: Pain) lisinopril-hydrochlorothiazide 20-25 mg Tablet 1 tab PO QDAY diclofenac sodium 75 mg Tablet,Delayed Release (Dr/Ec) 75 mg PO BID tadalafil 20 mg Tablet 20 mg PO QDAY aspirin 81 mg tablet,chewable 81 mg PO QDAY Qty: 180 0RF Xarelto 2.5 mg tablet 2.5 mg PO BID Qty: 180 0RF Orders to Discharge Patient Discharge Orders: Discharge (Routine); Ordered 10/19/23 Ordered By: Sarabjit Curran Follow ups/Referrals Follow ups/Referrals: Sarabjit Curran [STAFF PHYSICIAN] - 11/01/23 4:00 pm Instructions Instructions: Living With an Amputation, Phantom Limb Pain, Gangrene, Traumatic Toe Amputation, Diabetic Neuropathy, Preventing Diabetes Mellitus Complications Stand Alone Forms: Excuse From Work or School, Post Hospital Follow Up Care
--- NOTE | 2023-10-19 09:22 | NOTE.SOAP ---
Soap Note Note for Day of Date of Exam: 10/19/23 Subjective Data Subjective Data: doing well after amputation of right fifth toe and skin graft of the dorsum right foot. Objective Data Temperature: 98.3 F Pulse Rate: 67 Respiratory Rate: 16 Blood Pressure: 111/67 O2 Sat by Pulse Oximetry: 95 Objective Data: Toes warm, dressings in place right leg Assessment Assessment: as above Plan Plan: waiting on placement to Assisted Facility
[2023-10-19 13:34] VITALS: BP 106/65; PULSE 81; RESP 22; O2SAT 96
== END 2023-10-19 13:36 | DRG 256 ==
LOC: ICU 13:43
PROVIDERS: ADMIT Surgery; ATTEND Surgery
DX: R26.89 Other abnormalities of gait and mobility; I70.223 Atherosclerosis of native arteries of extremities with rest pain, bilateral legs; E87.6 Hypokalemia; I10 Essential (primary) hypertension; R94.31 Abnormal electrocardiogram [ECG] [EKG]; Z72.0 Tobacco use; Z01.810 Encounter for preprocedural cardiovascular examination; E83.42 Hypomagnesemia; I96 Gangrene, not elsewhere classified